=== PATIENT | male | born 1965 | race Caucasian/White ===

== ENCOUNTER 2021-10-22 20:36 | Emergency (ER) | payer SELFPAY ==
[2021-10-22 20:39] VITALS: BP 171/102; PULSE 98; RESP 18; TEMP 36.9; O2SAT 95; BMI 64.0
--- NOTE | 2021-10-22 20:58 | HMH.EDSKAF ---
ED Disposition Clinical Impression: Elevated glucose Contact dermatitis Qualifiers: Contact dermatitis type: unspecified Contact dermatitis trigger: unspecified trigger Qualified Code(s): L25.9 - Unspecified contact dermatitis, unspecified cause Disposition: Home, Self-Care Condition on Discharge: Good Instructions: DI for Rash Additional Instructions: use meds and see pcp for follow up Prescriptions: Minocycline HCl [Minocycline HCl 100mg Tab*] 100 mg PO BID #14 tab Transmission Status: Pending to [id number] predniSONE [Prednisone 20mg Tab] 20 mg PO BID #10 tab Transmission Status: Pending to [id number] - Critical Care Critical Care Time: No Attestation: On , the high probability of a clinically significant, sudden or life threatening deterioration of the following system(s) required my full and direct attention, intervention and personal management. The time I documented below is in addition to time spent performing reported procedures but includes the following listed in this critical care notation. Medical Decision Making - Medical Records Medical records reviewed: Yes: I reviewed the patient's medical records. - Umesh Inquiry Pt receiving controlled substance: No Vital Signs: 10/22/21 20:39 Temperature 98.4 F Temperature Source Oral Pulse Rate [Left Radial] 98 H Respiratory Rate 18 Blood Pressure [Right Arm] 171/102 H Blood Pressure Mean [Right Arm] 125 02 Sat by Pulse Oximetry 95 Oxygen Delivery Method Room Air - Lab Data Lab results reviewed: Yes: I reviewed the patient's lab results. Lab Results 10/22/21 20:50: WBC 8.6, RBC 5.04, Hgb 17.1, Hct 51.6, MCV 102.5 H, MCH 34.0 H, MCHC 33.2, RDW 14.6, Plt Count 218, MPV 10.9 H, Neut % (Auto) 51.8, Lymph % (Auto) 27.4, Kimble % (Auto) 8.2, Eos % (Auto) 10.5, Baso % (Auto) 2.0, Neut # (Auto) 4.5, Lymph # (Auto) 2.4, Kimble # (Auto) 0.7, Eos # (Auto) 0.9 H, Baso # (Auto) 0.2, ESR 8 10/22/21 20:50: Sodium 137, Potassium 3.7, Chloride 99, Carbon Dioxide 33 H, Anion Gap 8.7, BUN 24 H, Creatinine 1.10, Estimated Creat Clear 66, Estimated GFR 69, Est GFR ( Amer) 83, Glucose 264 H, Calcium 9.6, Total Bilirubin 0.6, AST 51, ALT 44, Alkaline Phosphatase 78, C-Reactive Protein 3.3, Total Protein 7.7, Albumin 4.4, Globulin 3.3 H, Albumin/Globulin Ratio 1.3 Result diagrams: 10/22/21 20:50 10/22/21 20:50 Orders (Tests/Meds): ED MEDICATIONS Discontinued Medications Generic Name Dose Route Start Last Admin Trade Name Freq PRN Reason Stop Dose Admin Methylprednisolone Sodium Succinate 125 mg 10/22/21 21:00 10/22/21 21:03 Methylprednisolone Sod Succ 125mg Vial IV 10/22/21 21:01 125 mg ONCE ONE Administration - Radiology Data #1 Image(s): Chest Image Reviewed: Yes I have reviewed radiologist's interpretation Preliminary Findings: Abnormal (see report ) Medical Decision Narrative: has rash which clinically and by hx is reactive - discussed diabetes and need to see pcp for follow up Skin/Abscess/FB HPI - General Chief complaint: Allergic Reaction Stated complaint: throat swelling up Time Seen by Provider: 10/22/21 20:58 Mode of Arrival: Ambulatory Source of Information: Patient, Medical Record Limitations: No Limitations Description of Symptoms (Recalled from ER Triage Doc. by RN): PT REPORTS DIFFICULTY SWALLOWING, DIFFICULTY BREATHING AND RASH. PT REPORTS HE TOOK BENEDRYL 4 HOURS AGO AND IT HAS NOT IMPROVED. - History of Present Illness HPI narrative: pt with reported rash to lr wrist then later to rt upper ext and today with itching - spread to neck -no tick bites - no fever - does smoke - has pre-diabetes MD complaint: rash Onset (ago): day(s) Tetanus up to date: unsure Location: neck, RUE Severity: moderate Quality: pruritic Consistency: intermittent Context: none Associated symptoms: denies other symptoms Treatments prior to arrival: Benadryl - Related Data Home Medications
--- NOTE | 2021-10-22 21:04 | XR_ITS ---
PROCEDURE INFORMATION: Exam: XR Chest Exam date and time: 10/22/2021 9:01 PM Age: 56 years old Clinical indication: Cough; Patient HX: PT states rash on neck causing swelling x2 days TECHNIQUE: Imaging protocol: XR of the chest. Views: 2 views. COMPARISON: No relevant prior studies available. FINDINGS: Lungs: Interstitial haziness in both lungs findings concerning for interstitial pneumonia. Granulomatous changes. Pleural spaces: Unremarkable. No pleural effusion. No pneumothorax. Heart/Mediastinum: Unremarkable. No cardiomegaly. Bones/joints: Unremarkable. IMPRESSION: Interstitial haziness in both lungs could indicate mild interstitial pneumonia. Correlate clinically
[2021-10-22 21:19] LABS: Basophils # 0.2 K/mm3 (0-0.2); Eosinophils # 0.9 K/mm3 (0.0-0.4); Eosinophils % 10.5 % (0.1-12.0); Hematocrit 51.6 % (42.0-52.0); Hemoglobin 17.1 g/dL (14.1-18.0); Lymphocytes # 2.4 K/mm3 (0.7-4.5); Lymphocytes % 27.4 % (10-50); Mean Corpuscular HGB Conc 33.2 g/dL (31.8-35.4); Mean Corpuscular Volume 102.5 fl (80-94); Mean Platelet Volume 10.9 fl (7.4-10.4); Monocytes # 0.7 K/mm3 (0.1-1.0); Monocytes % 8.2 % (1.7-9.3); Neutrophils # 4.5 K/mm3 (1.8-7.8); Neutrophils % 51.8 % (37.0-80.0); Platelet Count 218 K/mm3 (142-424); Red Blood Count 5.04 M/mm3 (4.60-6.20); Red Cell Distribution Width 14.6 % (11.5-17.5); White Blood Count 8.6 K/mm3 (4.8-10.8)
[2021-10-22 21:23] LABS: Alanine Aminotransferase 44 U/L (12-78); Albumin Level 4.4 g/dl (3.5-5.0); Albumin/Globulin Ratio 1.3 (1.1-1.8); Alkaline Phosphatase 78 U/L (38-126); Anion Gap 8.7 mEq/L (5-15); Aspartate Amino Transferase 51 U/L (17-59); Bilirubin,Total 0.6 mg/dl (0.2-1.3); Blood Urea Nitrogen 24 mg/dl (9-20); Calcium 9.6 mg/dl (8.4-10.2); Carbon Dioxide 33 mmol/L (22.0-30.0); Chloride 99 mmol/L (98-107); Creatinine Clearance Estimated 66 mL/min (50-200); Estimated Glomerular Filt Rate 69 ml/min (>60); GFR (African American) 83 ML/MIN (>60); Globulin 3.3 g/dL (1.3-3.2); Glucose 264 mg/dl (74-100); Potassium 3.7 mmoL/L (3.5-5.1); Sodium 137 mmol/L (136-145); Total Protein,Serum 7.7 g/dl (6.3-8.2)
[2021-10-22 21:28] LABS: C-Reactive Protein 3.3 mg/L (0-4)
[2021-10-22 21:51] LABS: Erythrocyte Sedimentation Rate 8 mm/hr (0-20)
--- NOTE | 2021-10-22 22:10 | PC.NURSE ---
ER at bedside
[2021-10-22 22:15] VITALS: BP 109/60; PULSE 83; RESP 18; TEMP 36.9; O2SAT 94
[2021-10-22 22:27] LABS: Hemoglobin A1C 7.4 % (4.0-6.0)
== END 2021-10-22 22:17 | disposition home or self-care (01) ==
PROVIDERS: Emergency Provider Emergency Medicine
DX: T78.40XA Allergy, unspecified, initial encounter (principal); R73.03 Prediabetes
CPT/HCPCS: 71046; 80053; 83036; 85025; 85651; 86140; 96374; 99284

== ENCOUNTER 2025-05-14 09:24 | Emergency (ER) | payer SELFPAY ==
[2025-05-14] VITALS (9 sets, daily range): BP systolic 128–166; BP diastolic 81–96; PULSE 54–77; RESP 18–21; TEMP 36.6–36.8; O2SAT 88–99; BMI 28.2
[2025-05-14 09:33] LABS: Bilirubin,Urine Negative (Negative); Color,Urine YELLOW (Yellow); Glucose,Urine (UA) Negative (Negative); Ketones,Urine Negative (Negative); Leukocyte Esterase,Urine Negative (Negative); Microscopic, Urine URINE MICROSCOPIC (MICROSCOPIC); PH,Urine 5.5 (5.0-8.5); Protein,Urine Negative (Negative); Specific Gravity, Urine 1.015 (1.005-1.030); Urobilinogen,Urine 0.2 EU/dl (0.2)
--- NOTE | 2025-05-14 09:36 | ECG_ITS ---
APPROVED REPORT Exam: Resting ECG HR:63 bpm ECG Measurements Heart Rate 63 AXES TN 151 P 20 QRSd 85 QRS 20 QT 402 T 46 QTc 410 Conclusion SINUS RHYTHM NORMAL ECG UNCONFIRMED REPORT Electronically signed by : Dev Fitch, 05/14/2025 15:07:04
--- OUTSIDE RECORDS SUMMARY | 2025-05-14 09:39 | XMS_ITS | Encounter Summary ---
Author Organization [employer] ([place], [place], [place], [place]) Address [address] [place] [address] Care Team Providers Care Director Of Development Name Role Phone Unavailable Primary Care Provider Unavailabl e Encounter Details Date Type Department Care Team (Late st Contact Info) Description 02/07/2021 Transcribed Document [facility] Family Medicine [address] [place] [address] ProviderAntonette MD [address] [place] [address] Social History Tobacco Use Types Packs/Day Years Used Date Smoking Tobacco: Never Assessed Sex and Gender Information Value Date Recorded Sex Assigned at Not on file Legal Sex Male 4:32 PM CDT Gender Identity Not on file Sexual Orientation Not on file documented as of this encounter Miscellaneous Notes * Cerner Conversion Note - Antonette ProviderMD - 02/07/2021 6:48 PM CDT [facility] OR IntraOp Summary Primary Physician: BRAYDEN LOZA JR, JR, MD-ORT Finalized Date/Time: 02/07/21 19:49:40 Pt. Name: KING ALFREDA /Sex: 1965 Male Med Rec #: [id number] Physician: BRAYDEN LOZA JR, JR, MD-ORT Financial #: [id number] Pt. Type: O Room/Bed: Admit/Disch: 02/07/21 11:25:00 - Institution: [facility] IntraOp Case Attendance Entry 1 Entry 2 Entry 3 Case Attendee BRAYDEN LOZA JR, JR, Lisa Fitch RN Freitas, Sarah A, Rn MD-ORT Role Performed Surgeon/Proceduralist, Gallery Or Museum Guide, First Gallery Or Museum Guide, First First Time In 02/07/21 18:28:00 02/07/21 18:28:00 02/07/21 18:28:00 Time Out 02/07/21 19:51:00 02/07/21 18:59:00 02/07/21 19:51:00 Procedure Shoulder Rotator Cuff Shoulder Rotator Cuff Shoulder Rotator Cuff Repair Arthro Repair Arthro Repair Arthro Other Attendee Superficial Wound Closed By: Last Modified By: Christina Perkins Rn Freitas, Sarah A, Christina Vasquez Rn 02/07/21 19:49:36 02/07/21 19:49:36 02/07/21 19:49:36 Entry 4 Entry 5 Entry 6 Case Attendee FARHAN MESSERST OTHER, ATTENDEE #1 ALFREDO PARDO (REF)MD-INT Role Performed Scrub, First Scrub, First SR. PAYROLL PROCESSOR/Nurse Instrumentation Technician Time In 02/07/21 18:28:00 02/07/21 18:28:00 02/07/21 18:28:00 Time Out 02/07/21 19:51:00 02/07/21 19:00:00 02/07/21 19:51:00 Procedure Shoulder Rotator Cuff Shoulder Rotator Cuff Shoulder Rotator Cuff Repair Arthro Repair Arthro Repair Arthro Other Attendee Dotty Wells Superficial Wound Closed By: Last Modified By: Christina Perkins Rn Freitas, Sarah A, Rn Freitas, Sarah A, Rn 02/07/21 19:49:36 02/07/21 19:49:36 02/07/21 19:49:36 Entry 7 Entry 8 Case Attendee OTHER, ATTENDEE #2 OTHER, ATTENDEE #3 Role Performed Vendor Vendor Time In 02/07/21 18:28:00 02/07/21 18:28:00 Time Out 02/07/21 19:51:00 02/07/21 19:51:00 Procedure Shoulder Rotator Cuff Shoulder Rotator Cuff Repair Arthro Repair Arthro Other Attendee marissa Eason Superficial Wound Closed By: Last Modified By: Christina Perkins Rn Freitas, Sarah A, Rn 02/07/21 19:49:36 02/07/21 19:49:36 [facility] IntraOp Case Attendance Audit 02/07/21 19:49:36 Brush Machine Setter: [id number] Modifier: [id number] 1 <+> Time Out 1 <*> Procedure Shoulder Rotator Cuff Repair Arthro 2 <*> Procedure Shoulder Rotator Cuff Repair Arthro 3 <+> Time Out 3 <*> Procedure Shoulder Rotator Cuff Repair Arthro 4 <+> Time Out 4 <*> Procedure Shoulder Rotator Cuff Repair Arthro 5 <*> Procedure Shoulder Rotator Cuff Repair Arthro 6 <+> Time Out 6 <*> Procedure Shoulder Rotator Cuff Repair Arthro 7 <+> Time Out 7 <*> Procedure Shoulder Rotator Cuff Repair Arthro 8 <+> Time Out 8 <*> Procedure Shoulder Rotator Cuff Repair Arthro 02/07/21 19:05:16 Brush Machine Setter: [id number] Modifier: [id number] <+> 1 Time In <+> 1 Procedure 2 <+> Time In 2 <*> Procedure Shoulder Rotator Cuff Repair Arthro 3 <+> Time In 3 <*> Procedure Shoulder Rotator Cuff Repair Arthro 4 <+> Time In 4 <*> Procedure Shoulder Rotator Cuff Repair Arthro 5 <+> Time In 5 <*> Procedure Shoulder Rotator Cuff Repair Arthro 6 <+> Time In 6 <*> Procedure Shoulder Rotator Cuff Repair Arthro 7 <+> Time In 7 <*> Procedure Shoulder Rotator Cuff Repair Arthro 8 <+> Time In 8 <*> Procedure Shoulder Rotator Cuff Repair Arthro [facility] IntraOp Case Times Entry 1 Patient In Room Time 02/07/21 18:28:00 Out Room Time 02/07/21 19:51:00 Anesthesia Start Time 02/07/21 18:28:00 Stop Time 02/07/21 19:51:00 Anesthesia Ready 02/07/21 18:28:00 Surgery / Procedure Times Start Time 02/07/21 18:48:00 Stop Time 02/07/21 19:37:00 Last Modified By: Christina Perkins Rn 02/07/21 19:49:30 [facility] IntraOp Case Times Audit 02/07/21 19:49:30 Brush Machine Setter: [id number] Modifier: [id number] <+> 1 Out Room Time <+> 1 Stop Time <+> 1 Stop Time [facility] IntraOp Communication Entry 1 Communication To Family/Significant other Communication By BRAYDEN LOZA JR, JR, MD-ORT Last Modified By: Christina Perkins Rn 02/07/21 19:04:36 [facility] IntraOp Counts Verification Entry 1 Procedure Shoulder Rotator Cuff Repair Arthro Count Info Count Type Sponge, Sharps Counts Verification Baseline/pre-procedure Sequence Count Results Not Applicable Counts Performed By Count Performed By OTHER, ATTENDEE #1 (Scrub) Count Performed By Lisa Fitch RN (RN) Last Modified By: Christina Perkins Rn 02/07/21 19:04:49 [facility] IntraOp Counts Final Entry 1 Procedure Shoulder Rotator Cuff Repair Arthro Final Count Info Count Type Sponge, Sharps Counts Verification Skin Closure/end of Sequence procedure Count Results Correct, surgeon notified Counts Performed By Count Performed By FARHAN MESSER ST (Scrub) Count Performed By Christina Perkins Rn (RN) Last Modified By: Christina Perkins Rn 02/07/21 19:27:48 [facility] IntraOp Departure from OR Entry 1 Integumentary Assessment Integumentary WDL Assessment WDL Transfer/Handoff Transfer to PACU Phase I Handoff Method Bedside/Face to face Post-op Transport Stretcher/Gurney Via Patient Transport ALFREDO PARDO (REF), Accompanied by Maddie HUNTER Sarah A, Rn Last Modified By: Christina Perkins Rn 02/07/21 19:05:02 [facility] IntraOp Dressing and Packing Entry 1 Type Dressing Location right shoulder Wound Dressing Item Xeroform, 4x4's, ABD dressing pad Tape Type Paper Supplemental Other Applications Other Comments SLING APPLIED Last Modified By: Christina Perkins Rn 02/07/21 19:05:13 [facility] IntraOp Fire Risk Assessment Entry 1 Fire Info Surgical Site or 1- Yes Incision Above the Xyphoid Open O2 Source 0- No (Mask or Cannula) Available Ignition 1- Yes (ESU, Laser, Light Source) Fire Risk 2 Assessment Score Fire Score Fire Risk Yes Assessment Complete Fire Risk Lisa Fitch, press breaker Verified By Fire Risk 02/07/21 18:46:00 Assessment Verified Date/Time Fire Risk Standard Fire Yes Safety Precautions Followed Last Modified By: Christina Perkins Rn 02/07/21 19:08:11 [facility] IntraOp Fire Risk Assessment Audit 02/07/21 19:08:11 Brush Machine Setter: [id number] Modifier: [id number] <+> 1 Fire Risk Assessment Verified Date/Time [facility] IntraOp General Case Promotions Manager 1 Case Information OR OR 05 SJE Case Level 1 Room Verified Yes Wound Class I - Clean Specialty Orthopedic Anesthesia Type General ASA Class 2 Diagnosis Preop Diagnosis right shoulder pain Postop Same As Preop No Postop Diagnosis see md post op note Last Modified By: Christina Perkins Rn 02/07/21 19:05:57 [facility] IntraOp Implant Log Entry 1 Entry 2 Type Implant (Synthetic) Implant (Synthetic) Implant Log Implant Type Hardware Hardware Tissue Implant Type Implant ANCHOR SUT HEALIX PEEK ANCHR HEALX ADV SP PEEK Identification [id number] Description Implant Quantity 1 1 Implant Site right shoulder right shoulder Implant Identification Model Number Implant Identification Serial Number Implant [id number] Identification Lot Number Implant J&J:Ethicon:Mitek Prdt J&J:Ethicon:Mitek Prdt Identification Crusher Assembler Name: Implant [id number] Identification Catalog Number Implant Size Implant Has an Yes Yes Expiration Date Implant Expiration 07/27/23 09/25/23 Date Wasted Radioactive Material Time Implanted Tissue Implant Continue for Tissue Implant Documentation Tissue Identification Number Graft Prep Per Crusher Assembler Instructions: Tissue Preparation Method: Reconstitution Solution: Reconstitution Solution Lot Number Reconstitution Solution Expiration Date: Thawing Solution Thawing Solution Lot Number Thawing Solution Expiration Date Preparation Materials, Other Preparation Materials, Other Lot Number Preparation Materials, Other Expiration Date Tissue Prepared/Processed By Crusher Assembler Paperwork Completed Implant Type Comment Last Modified By: Christina Perkins Rn Freitas, Sarah A, Rn 02/07/21 19:13:26 02/07/21 19:17:46 [facility] IntraOp Implant Log Audit 02/07/21 19:17:46 Brush Machine Setter: [id number] Modifier: [id number] <+> 2 Implant Expiration Date <+> 2 Implant Has an Expiration Date 02/07/21 19:17:45 Brush Machine Setter: [id number] Modifier: [id number] <+> 2 Implant Identification Description <+> 2 Implant Identification Lot Number <+> 2 Implant Identification Crusher Assembler Name: <+> 2 Implant Site <+> 2 Implant Quantity <+> 2 Implant Identification Catalog Number <+> 2 Implant Type <+> 2 Type [facility] IntraOp Intraoperative Assessment Entry 1 Valid History / Yes Physical in Chart Preoperative Yes Checklist Reviewed/Evaluated Allergies Reviewed Yes Patient is Latex No Sensitive Isolation Not applicable Precautions Noted Level of WDL Consciousness (WDL = Alert, Oriented to Person, Place, and Time) Skin Assessment Yes Verified Present Upon IVs Arrival to OR Last Modified By: Christina Perkins Rn 02/07/21 19:12:04 [facility] IntraOp Intraoperative Assessment Audit 02/07/21 19:12:04 Brush Machine Setter: [id number] Modifier: [id number] 1 <-> Handoff Reported to Lisa Ficth RN 1 <-> Handoff Method Bedside/Face to face [facility] IntraOp Intraoperative Equipment Entry 1 Type Equipment Equipment Equipment Sarah Suction System Setting med Intraop Monitoring Electrocardiogram Three lead placement (ECG) Electrode Placement Antiembolic Devices Antiembolic Devices Sequential compression device, knee high Antiembolic Device Bilateral Location Scopes Photo/Video Documentation Photo No Video No Last Modified By: Christina Perkins Rn 02/07/21 19:08:51 [facility] IntraOp Patient Positioning Entry 1 Procedure Shoulder Rotator Cuff Repair Arthro Body Position Lateral, right side up Left Arm Position Secured on padded arm board Right Arm Position Held on field Left Leg Position Uncrossed, parallel Right Leg Position Uncrossed, parallel Feet Uncrossed Yes Pressure Points Yes Checked Positioning Devices Pillows, Safety Strap, Leg(s), Sparks Bag, Roll, Axillary, Pad, Arm, Arm Board Device Position PT. IN LATERAL POSITION WITH OPERATIVE ARM SUSPENDED IN TRACTION WITH WEIGHTS. PILLOWS UNDER HEAD AND BETWEEN LEGS. Positioned By BRAYDEN LOZA JR, JR, MD-ORT, Lisa Fitch RN, ALFREDO PARDO (REF)MOLLYINT, OTHER, ATTENDEE #1 Position Verified Positioning Yes Verified by Anesthesia Positioning Yes Verified by Surgeon Last Modified By: Christina Perkins Rn 02/07/21 19:09:49 [facility] IntraOp Sign In Entry 1 Patient, Site, Yes Procedure Identified Surgical Consent Yes Confirmed Relevant Surgical Yes Documents Available Surgical Site Yes Marked by person performing procedure Anesthesia Machine Yes Check Completed Medication Checks Yes Completed Allergies Yes Airway Difficult No Airway/Aspiration Risk Difficult Yes Airway/Aspiration Intervention Equipment Available Blood Loss Risk No Blood Loss No Intervention Equipment Prepared and Ready Blood Identifiers Not applicable Verified Per Policy Hypothermia Risk Yes Warming Measures Yes Taken Last Modified By: Christina Perkins Rn 02/07/21 19:10:03 [facility] Intra Op Sign Out Entry 1 RN Confirmation Surgical Yes Procedure(s) Identified Instrument, Sponge Yes and Sharps Counts Correct/Documented Equipment Problems N/A Documented Specimen Labeled N/A Correctly Urinary Catheter N/A Documented in IView Masters Patient Yes Recovery Concerns Reviewed with Anesthesia Provider, Surgeon and RN Masters Patient Yes Management Concerns Reviewed with Anesthesia Provider, Surgeon and RN Safety Checklist Yes Elements Complete? RN Sign Out Christina Perkins Rn Signature RN Sign Out 02/07/21 19:49:00 Signature Date/Time Plan of Care Outcome - Fire Risk OUTCOME STATEMENT: Goal met Patient is free from injury related to surgical fire Plan of Care Outcome - Pt Positioning OUTCOME STATEMENT: Goal met Absence of signs and symptoms of positioning injury. Plan of Care Outcome - Skin Prep OUTCOME STATEMENT: Goal met Intraoperative care is consistent with measures to prevent infection Plan of Care Outcome - Xray/Images OUTCOME STATEMENT: N/A Absence of observable signs or symptoms of radiation injury Plan of Care Outcome - Counts OUTCOME STATEMENT: Goal met Absence of signs and symptoms of injury related to extraneous objects Last Modified By: Christina Perkins Rn 02/07/21 19:49:33 [facility] Intra Op Sign Out Audit 02/07/21 19:49:33 Brush Machine Setter: [id number] Modifier: [id number] <+> 1 RN Sign Out Signature Date/Time [facility] IntraOp Skin Prep Entry 1 Procedure Shoulder Rotator Cuff Repair Arthro Prescribed Yes Pre-Surgical Prep Completed Prep Area right SHOULDER AND ARM Intraop Prep Integumentary WDL Assessment WDL Prep Agents Chloraprep Prep by Christina Perkins Rn Hair Removal Methods No hair removal performed Last Modified By: Christina Perkins Rn 02/07/21 19:06:13 [facility] IntraOp Surgical Procedures Entry 1 Procedure Shoulder Rotator Cuff Repair Arthro Additional RIGHT SHOULDER Procedure ARTHROSCOPY WITH Description ROTATOR CUFF REPAIR AND LABRAL DEBRIDEMENT Primary Procedure Yes Primary Surgeon BRAYDEN LOZA JR, JR, MD-ORT Start 02/07/21 18:48:00 Stop 02/07/21 19:37:00 Anesthesia Type General Specialty Orthopedic Wound Class I - Clean Last Modified By: Christina Perkins Rn 02/07/21 19:49:34 [facility] IntraOp Surgical Procedures Audit 02/07/21 19:49:34 Brush Machine Setter: [id number] Modifier: [id number] <+> 1 Stop [facility] IntraOp Temp Regulation Devices Entry 1 Temp Regulation Temperature Forced Air Warming Regulation Device device Temperature Lower body Regulation Site Temperature ALFREDO PARDO (REF), Regulation Device DALE Applied by Last Modified By: Christina Perkins Rn 02/07/21 19:07:56 [facility] IntraOp Time Out Entry 1 Procedure to be Shoulder Rotator Cuff Performed Repair Arthro Time Out Time Out Pause Time 02/07/21 18:46:00 All activity Yes suspended (unless life threatening emergency) Team Verbally Correct patient Confirms Information identity, Correct side and site are marked, Consent form is present and accurate, Agreement on the procedure to be done, Correct patient position, Relevant images/results properly labeled/appropriately displayed, Confirm antibiotics have been administered, Confirm the skin prep has dried, Confirm prosthesis/implant/devic e is present, Performed in location of procedure after prepped/draped Antibiotic Yes Prophylaxis Administered Or In Progress Within the Last 60 Minutes Beta Hafsa N/A Administered Venous Yes Thromboembolism Prophylaxis Required Anticipated Critical Events Surgeon None expected Anesthesia Provider None expected Nursing Assures Sterility of instruments Essential Imaging Yes Labeled and Displayed Last Modified By: Christina Perkins Rn 02/07/21 19:04:27 Case Comments <None> Finalized By: Christina Perkins, Rn Document Signatures Signed By: Christina Perkins Rn 02/07/21 19:49 documented in this encounter Plan of Treatment Not on file documented as of this encounter Visit Diagnoses Not on filedocumented in this encounter
--- OUTSIDE RECORDS SUMMARY | 2025-05-14 09:39 | XMS_ITS | Encounter Summary ---
Author Organization [employer] ([place], [place], [place], [place]) Address [address] [place] [address] Care Team Providers Care News Internship Name Role Phone Unavailable Primary Care Provider Unavailabl e Encounter Details Date Type Department Care Team (Late st Contact Info) Description 02/07/2021 Transcribed Document [facility] [place] Family Medicine [address] [place] [address] ProviderAntonette MD [address] [place] [address] Social History Tobacco Use Types Packs/Day Years Used Date Smoking Tobacco: Never Assessed Sex and Gender Information Value Date Recorded Sex Assigned at Not on file Legal Sex Male 4:32 PM CDT Gender Identity Not on file Sexual Orientation Not on file documented as of this encounter Miscellaneous Notes * Cerner Conversion Note - Antonette ProviderMD - 02/07/2021 1:04 PM CDT PAT Adult Entered On: 02/07/2021 13:12 EDT Performed On: 02/07/2021 13:04 EDT by EZE ZAVALA RN Vital Measurements Temperature Source : Temporal artery scanning Temperature Mode : Fahrenheit Temperature, Fahrenheit : 98.0 Deg F Clinical Temperature, C : 36.7 Deg C Pulse Method : Pulse Oximetry Pulse Source : Radial, Right Peripheral Pulse Rate : 89 bpm Pulse Rhythm : Regular Respiratory Rate : 16 Breaths/Min Blood Pressure Location : Arm, left upper Blood Pressure Source : Non-Invasive BP Device Blood Pressure Position : Side, Left Systolic Blood Pressure : 124 mmHg Diastolic Blood Pressure : 75 mmHg Oxygen Saturation : 92 % (LOW) Oxygen Therapy Mode : Room air EZE ZAVALA RN - 02/07/2021 13:04 EDT Pain Assessment Pain Assessment : Initial assessment Pain Scale Used : 0-10 Scale Pain Location Comment : R SHOULDER EZE ZAVALA RN - 02/07/2021 13:38 EDT Height and Weight, Clinical Dosing Height, Feet : 5 ft(Converted to: 152 cm, 60 Inch) Height, Inches : 6 Inch(Converted to: 0 ft 6 Inch, 15.24 cm) Clinical Height : 167.64 cm Body Surface Area (BSA) : 1.86 m2 Body Mass Index : 27.2 kg/m2 (HI) [place] Body Weight : 63 kg EZE ZAVALA RN - 02/07/2021 13:38 EDT Height Source : Stated Height Entry Format : [place] Weight Source : Standing scale Weight Entry Format : [place] Clinical Dosing Weight : 76.55 kg Weight, Pounds : 168.4 lb EZE ZAVALA RN - 02/07/2021 13:04 EDT Health Histories Smoking Status : 10 or more cigarettes (1/2 pack or more)/day in last 30 days Smokeless Tobacco Status : Never Desires Tobacco Cessation Medication : No Reason for No Tobacco Cessation Medication : Refuses FDA approved medications EZE ZAVALA RN - 02/07/2021 13:38 EDT Social History (As Of: 02/07/2021 13:43:16 EDT) Tobacco: Use in Last 12 Months: Cigarettes. Smoking Status Current every day smoker. Packs/Tins Daily: 1. (Last Updated: 08/09/2014 19:08:18 EST by LUKAS COLBY RN) Alcohol: Use in Last 12 Months: Yes. Days/Week: 6. # Drinks/Day: 2. Comments: 12/13/2013 10:29 - ARAVIND AHUJA MD-EMR: Beer (Last Updated: 12/13/2013 10:30:00 EDT by ARAVIND AHUJA MD-EMR) Substance Abuse: Drug Use Hx: No. Use in Last 12 Months: No. (Last Updated: 12/21/2013 09:39:40 EDT by AYANA RAGSDALE, LUCIA) Nutrition/Health: Caffeine intake amount: 3. (Last Updated: 12/21/2013 09:39:22 EDT by AYANA RAGSDALE, LUCIA) Employment/School: Employed, Work/School description: senior pharmacy technician. (Last Updated: 12/13/2013 10:30:12 EDT by LEIGHA, ARAVIND MATT, MD-EMR) Infectious Disease History Has the patient ever been tested for COVID-19? : Yes, Patient stated results Negative Where was the COVID-19 Testing completed? : [facility] Where are the test results? : Paper Copy on chart Date of COVID-19 test known? : Yes Date of COVID-19 Test : 02/05/2021 EDT Does patient have symptoms of COVID-19? : No COVID19 Screening : No Experiencing Infectious Disease Symptoms : No symptoms Physical contact outside [place] in the last 30 days : No Infectious Disease History : None Exposure to Contagious Illness : No Tuberculosis Symptoms : None EZE ZAVALA RN - 02/07/2021 13:38 EDT COVID19 PreProcedure Screening Is this an Emergent or Add on Procedure? : No Date PreProcedure COVID-19 test known? : Yes Date of PreProcedure COVID-19 : 02/05/2021 EDT Has patient been isolated since the test : Yes Exposed to COVID19 symptoms since test? : No EZE ZAVALA RN - 02/07/2021 13:04 EDT Anesthesia/Transfusion History Family History of Anesthesia Reaction : No prior transfusion(s) Transfusion History : Prior anesthesia without reaction Family History of Anesthesia Reaction : None EZE ZAVALA RN - 02/07/2021 13:04 EDT Functional Assessment Functional ADL Evaluation Index EBN Bathing : Independent (2) Dressing : Independent (2) Toileting : Independent (2) Transferring Bed or Chair : Independent (2) Continence : Independent (2) Feeding : Independent (2) EZE ZAVALA RN - 02/07/2021 13:04 EDT ADL Index Score : 12 EZE ZAVALA RN - 02/07/2021 13:04 EDT Advance Directive Patient has Advance Directive *Q : No, patient refuses Advance Directive information EZE ZAVALA RN - 02/07/2021 13:04 EDT Spiritual/Cultural Needs Any Spiritual/Cultural Needs or Requests : No EZE ZAVALA RN - 02/07/2021 13:38 EDT [place] Suicide Severity Rating Scale (C-SSRS) CSSRS Past Month Wish to be : No CSSRS Past Month Suicidal Thoughts : No CSSRS Lifetime Suicide Behavior : No Suicide Severity Rating Score : 0 Suicide Severity Rating : No Additional Care Required at this time Thoughts of Harming/Killing Others : No EZE ZAVALA RN - 02/07/2021 13:04 EDT Psychosocial History Currently in Unsafe Situation : No Do You Have a Support System? : Yes EZE ZAVALA RN - 02/07/2021 13:04 EDT Teaching/Learning Assessment Barriers To Learning : None evident Individuals Taught : Patient Readiness to Learn : Cooperative Baseline Knowledge of Topic : Good Readiness to Learn : Explanation, Printed materials Learning Style Preferences Patient : Printed materials, Verbal explanation Learning Style Preferences Family : Printed materials, Verbal explanation EZE ZAVALA RN - 02/07/2021 13:38 EDT Education Topics, Periop Preadmission Perioperative Education Grid Arrival Time/Place : Verbalizes understanding Falls : Verbalizes understanding IV's : Verbalizes understanding NPO Status/Directions : Verbalizes understanding Pain Management : Verbalizes understanding Preprocedure Preparations : Verbalizes understanding Preprocedure Tests/Labs : Verbalizes understanding Responsible Adult : Verbalizes understanding Take/Hold Medications Pre-Procedure : Verbalizes understanding EZE ZAVALA RN - 02/07/2021 13:38 EDT General Info Preferred Name : Luis Arrived From : Home Mode of Arrival on Unit : Ambulatory Patient Arrival Date/Time : 02/07/2021 11:35 EDT Legal Guardian : Unaccompanied Support Person/Patient [place] Pen Cartridge Tester : Yes EZE ZAVALA RN - 02/07/2021 13:04 EDT EZE ZAVALA RN - 02/07/2021 13:38 EDT Want Family/Rep/Phys Notified of Admit : No Emergency Contact #1 : . Emergency Contact #1 Phone Number : . Emergency Contact #1 Relationship : . Emergency Contact #2 : . Emergency Contact #2 Phone Number : . Emergency Contact #2 Relationship : . Information Obtained From : Patient Primary Language : Romanian Preferred Communication Mode : Verbal Communication Barrier : None Bait Man Needed : No EEZ ZAVALA RN - 02/07/2021 13:04 EDT Lai Scale Lai Sensory Perception : No impairment Lai Moisture : Rarely moist Lai Activity : Walks frequently Lai Mobility : Slightly limited Lai Nutrition : Excellent Lai Friction and Shear : No apparent problem Lai Score : 22 EZE ZAVALA RN - 02/07/2021 13:04 EDT Sleep Apnea Risk Assmt Hx of Obstructive Sleep Apnea Diagnosis : No Snore Loudly : No Tired, Fatigued, or Sleepy During Day : No Observed Stopping Breathing During Sleep : No Have/Are Being Treated for Hypertension : No BMI Greater Than 35 kg/m2 : No EZE ZAVALA RN - 02/07/2021 13:38 EDT Age over 50 Years Old : Yes Gender Male : Yes EZE ZAVALA RN - 02/07/2021 13:04 EDT Pain Scale Intensity : 6 EZE ZAVALA RN - 02/07/2021 13:38 EDT Image 4 - Images currently included in the form version of this document have not been included in the text rendition version of the form. documented in this encounter Plan of Treatment Not on file documented as of this encounter Visit Diagnoses Not on filedocumented in this encounter
--- OUTSIDE RECORDS SUMMARY | 2025-05-14 09:39 | XMS_ITS | Encounter Summary ---
Author Organization [employer] ([place], [place], [place], [place]) Address [address] [place] [address] Care Team Providers Care Hydraulic Mechanic Name Role Phone Unavailable Primary Care Provider Unavailabl e Encounter Details Date Type Department Care Team (Late st Contact Info) Description 02/05/2019 Transcribed Document [facility] [place] [address] [place] [address] ProviderAntonette MD [address] [place] [address] Social History Tobacco Use Types Packs/Day Years Used Date Smoking Tobacco: Never Assessed Sex and Gender Information Value Date Recorded Sex Assigned at Not on file Legal Sex Male 4:32 PM CDT Gender Identity Not on file Sexual Orientation Not on file documented as of this encounter Miscellaneous Notes * Cerner Conversion Note - Antonette ProviderMD - 02/05/2019 11:00 AM CDT ED Assessment Entered On: 02/05/2019 11:30 EDT Performed On: 02/05/2019 11:08 EDT by MARY AQUINO ED Quick Look Assessment Level of Consciousness : Alert, Awake Affect/Behavior : Appropriate, Calm, Cooperative Orientation : Oriented x 4 Skin Temperature : Warm Skin Description : Dry MARY AQUINO - 02/05/2019 11:28 EDT ED General-Functional Assess Information Obtained From : Patient Preferred Communication Mode : Verbal Communication Barrier : None Primary Language : Georgian Any Spiritual/Cultural Needs or Requests : No Currently in Unsafe Situation : No MARY AQUINO - 02/05/2019 11:28 EDT Social Habits Smoking Status : 10 or more cigarettes (1/2 pack or more)/day in last 30 days Smokeless Tobacco Status : Never Desires Tobacco Cessation Medication : No Reason for No Tobacco Cessation Medication : ED/procedural patient only Desires Tobacco Cessation Calc : 1 MARY AQUINO - 02/05/2019 11:28 EDT Social History (As Of: 02/05/2019 11:30:35 EDT) Tobacco: Use in Last 12 Months: Cigarettes. Smoking Status Current every day smoker. Packs/Tins Daily: 1. (Last Updated: 08/09/2014 19:08:18 EST by LUKAS COLBY, RN) Alcohol: Use in Last 12 Months: Yes. Days/Week: 6. # Drinks/Day: 2. Comments: 12/13/2013 10:29 - ARAVIND AHUJA MD-EMR: Beer (Last Updated: 12/13/2013 10:30:00 EDT by ARAVIND AHUJA MD-EMR) Substance Abuse: Drug Use Hx: No. Use in Last 12 Months: No. (Last Updated: 12/21/2013 09:39:40 EDT by AYANA RAGSDALE, RN) Nutrition/Health: Caffeine intake amount: 3. (Last Updated: 12/21/2013 09:39:22 EDT by AYANA RAGSDALE, RN) Employment/School: Employed, Work/School description: radiocommunications technician. (Last Updated: 12/13/2013 10:30:12 EDT by ARAVIND AHUJA MD-EMR) Respiratory Breath Sounds Auscultated : Anterior, Laterally Respiratory Assessment WDL : WDL with patient specific variances (Comment: hx of COPD, +smoker. [MARY AQUINO Sudhir - 02/05/2019 11:28 EDT] ) Cough : None MILES, MARY Peguero - 02/05/2019 11:28 EDT Breath Sounds Assessment Grid All Lobes Breath Sounds : Clear MARY AQUINO Sudhir - 02/05/2019 11:28 EDT Musculoskeletal Musculoskeletal Assessment WDL : WDL with exceptions Musculoskeletal Assessment Comment : c/o R knee pain/swelling. hx of knee replacement in past. ambulatory with cane. ANTONINA AQUINOROSA Peguero - 02/05/2019 11:28 EDT Neurologic ASMT, ED Neurologic Assessment WDL : WDL [place] Coma Scale Link : Open GCS MARY AQUINO Sudhir Vigil 02/05/2019 11:28 EDT Nieves Coma [place] Best Motor Response : Obey commands Nieves Best Verbal Response : Oriented Nieves Eye Opening Response : Spontaneous [place] Coma Score : 15 MARY AQUINO Sudhir - 02/05/2019 11:28 EDT Electronically signed by Branden, Marcelino Conversion Recorder Helper [employer] Cerner at 11/12/2022 11:28 AM CDT documented in this encounter Plan of Treatment Not on file documented as of this encounter Visit Diagnoses Not on filedocumented in this encounter
--- OUTSIDE RECORDS SUMMARY | 2025-05-14 09:39 | XMS_ITS | Encounter Summary ---
Author Organization [employer] ([place], [place], [place], [place]) Address [address] [place] [address] Care Team Providers Care [employer] Name Role Phone Unavailable Primary Care Provider Unavailabl e Encounter Details Date Type Department Care Team (Late st Contact Info) Description 02/05/2019 Transcribed Document [facility] [place] Family Medicine [address] [place] [address] ProviderAntonette MD [address] [place] [address] Social History Tobacco Use Types Packs/Day Years Used Date Smoking Tobacco: Never Assessed Sex and Gender Information Value Date Recorded Sex Assigned at Not on file Legal Sex Male 4:32 PM CDT Gender Identity Not on file Sexual Orientation Not on file documented as of this encounter Miscellaneous Notes * Cerner Conversion Note - Antonette Urbano MD - 02/05/2019 12:21 PM CDT [facility] [place] [address] BELEM GARG :1965 Visit Time:02/05/2019 Your Visit Summary Your Care Team Admitting Physician - ZARINA SANFORD MD-YAHIR Attending Physician - ZARINA SANFORD MD-YAHIR Primary Care Physician - ALFREDO HOPPER MD-[facility] Referring Physician - ZARINA SANFORD MD-YAHIR Your Diagnosis Gout of knee Knee pain-swelling Medical Information You may obtain a copy of your Emergency Department visit from Medical Records by calling the hospital phone number listed above and asking to be directed to the Medical Records Department. If you had special tests, such as EKG???s or X-rays, the interpretation of your tests given to you by the Emergency Department Physician is a preliminary report. Some fractures and illnesses fail to show up on preliminary tests. These will be reviewed again and we will call you if there are any new suggestions. If your symptoms continue notify your physician. After you leave, you should follow the instructions provided. What to do next Follow-Up Appointments Follow Up with Follow up with primary care provider When Within 2 to 4 days Comments Take medications as directed, follow with PCP, return to emergency Department with new or worsening symptoms Follow Up with Patient Resource Center When Within 2 to 3 days Comments Please contact the Patient Resource Center at if you need assistance finding a Primary Care Provider or Specialist in the future. Follow Up with ALFREDO HOPPER When Within 2 to 3 days Where: [address] [place] [address] Business (1) Allergies No Known Medication Allergies Immunizations This Visit No Immunizations Found Medications What How Much When Instructions Next Dose New predniSONE (predniSONE 50 mg oral tablet) 1 Tablet(s) Oral Every Day Duration: 5 Day(s) Pickup at [facility]/pharmacy #[id number] Pharmacy Information [facility]/pharmacy #[id number]: [address] [place], [place] [id number] [phone] The home medications listed are only as accurate as the information you provided. Please continue taking all of your medications prescribed by your Primary Care Provider unless specifically told to change or discontinue the medication. Please direct any questions regarding your home medications to your Primary Care Provider. Take your medications faithfully. Do NOT skip medication. Do NOT stop taking medications without the direction of a physician. Carry a list of your medications with you at all times, and take this medication list with you to your first follow up visit. Report any side effects. Avoid herbal remedies unless discussed with your physician. As part of your treatment plan, your physician may have prescribed a limited course of a controlled substance. This medication may be given to help people with moderate or severe pain or for other medical conditions, but there are risks involved with treatment. Common side effects may include nausea, constipation, drowsiness, sweating, itching, dry mouth, and rash. More serious side effects may include cognitive and motor impairment, like problems with thinking, concentrating, alertness, and movement (e.g. slowed reflexes), and driving and operating heavy machinery can be dangerous. It is important for you to talk to your physician if you have these side effects or questions. These controlled substances can produce physical dependence and be habit-forming if taken for an extended period of time, which means that the body has gotten used to them and may experience withdrawal symptoms if they are abruptly stopped. Withdrawal symptoms can include runny nose, sweating, goose bumps, diarrhea, abdominal cramping, rapid heartbeat, difficulty sleeping, and nervousness. Please dispose of unused and medications per pharmacy guidance. Test Results Laboratory or Other Results This Visit (last charted value for your 02/05/2019 visit) No Laboratory or Other Results This Visit Education Materials Gout Gout is painful swelling that can occur in some of your joints. Gout is a type of arthritis. This condition is caused by having too much uric acid in your body. Uric acid is a chemical that forms when your body breaks down substances called purines. Purines are important for building body proteins. When your body has too much uric acid, sharp crystals can form and build up inside your joints. This causes pain and swelling. Gout attacks can happen quickly and be very painful (acute gout). Over time, the attacks can affect more joints and become more frequent (chronic gout). Gout can also cause uric acid to build up under your skin and inside your kidneys. What are the causes? This condition is caused by too much uric acid in your blood. This can occur because: ??? Your kidneys do not remove enough uric acid from your blood. This is the most common cause. ??? Your body makes too much uric acid. This can occur with some cancers and cancer treatments. It can also occur if your body is breaking down too many red blood cells (hemolytic anemia). ??? You eat too many foods that are high in purines. These foods include organ meats and some seafood. Alcohol, especially beer, is also high in purines. A gout attack may be triggered by trauma or stress. What increases the risk? This condition is more likely to develop in people who: ??? Have a family history of gout. ??? Are male and middle-aged. ??? Are female and have gone through menopause. ??? Are obese. ??? Frequently drink alcohol, especially beer. ??? Are dehydrated. ??? Lose weight too quickly. ??? Have an organ transplant. ??? Have lead poisoning. ??? Take certain medicines, including aspirin, cyclosporine, diuretics, levodopa, and niacin. ??? Have kidney disease or psoriasis. What are the signs or symptoms? An attack of acute gout happens quickly. It usually occurs in just one joint. The most common place is the big toe. Attacks often start at night. Other joints that may be affected include joints of the feet, ankle, knee, fingers, wrist, or elbow. Symptoms may include: ??? Severe pain. ??? Warmth. ??? Swelling. ??? Stiffness. ??? Tenderness. The affected joint may be very painful to touch. ??? Shiny, red, or purple skin. ??? Chills and fever. Chronic gout may cause symptoms more frequently. More joints may be involved. You may also have white or yellow lumps (tophi) on your hands or feet or in other areas near your joints. How is this diagnosed? This condition is diagnosed based on your symptoms, medical history, and physical exam. You may have tests, such as: ??? Blood tests to measure uric acid levels. ??? Removal of joint fluid with a needle (aspiration) to look for uric acid crystals. ??? X-rays to look for joint damage. How is this treated? Treatment for this condition has two phases: treating an acute attack and preventing future attacks. Acute gout treatment may include medicines to reduce pain and swelling, including: ??? NSAIDs. ??? Steroids. These are strong anti-inflammatory medicines that can be taken by mouth (orally) or injected into a joint. ??? Colchicine. This medicine relieves pain and swelling when it is taken soon after an attack. It can be given orally or through an IV tube. Preventive treatment may include: ??? Daily use of smaller doses of NSAIDs or colchicine. ??? Use of a medicine that reduces uric acid levels in your blood. ??? Changes to your diet. You may need to see a specialist about healthy eating (dietitian). Follow these instructions at home: During a Gout Attack ??? If directed, apply ice to the affected area: ? Put ice in a plastic bag. ? Place a towel between your skin and the bag. ? Leave the ice on for 20 minutes, 2???3 times a day. ??? Rest the joint as much as possible. If the affected joint is in your leg, you may be given crutches to use. ??? Raise (elevate) the affected joint above the level of your heart as often as possible. ??? Drink enough fluids to keep your urine pale yellow. ??? Take imtj-tvr-eztumyt and prescription medicines only as told by your health care provider. ??? Do not drive or operate heavy machinery while taking prescription pain medicine. ??? Follow instructions from your health care provider about eating or drinking restrictions. ??? Return to your normal activities as told by your health care provider. Ask your health care provider what activities are safe for you. Avoiding Future Gout Attacks ??? Follow a low-purine diet as told by your dietitian or health care provider. Avoid foods and drinks that are high in purines, including liver, kidney, anchovies, asparagus, davis, mushrooms, mussels, and beer. ??? Limit alcohol intake to no more than 1 drink a day for non women and 2 drinks a day for men. One drink equals 12 oz of beer, 5 oz of wine, or 1?? oz of hard liquor. ??? Maintain a healthy weight or lose weight if you are overweight. If you want to lose weight, talk with your health care provider. It is important that you do not lose weight too quickly. ??? Start or maintain an exercise program as told by your health care provider. ??? Drink enough fluids to keep your urine pale yellow. ??? Take srdx-bvl-xdpqprg and prescription medicines only as told by your health care provider. ??? Keep all follow-up visits as told by your health care provider. This is important. Contact a health care provider if: ??? You have another gout attack. ??? You continue to have symptoms of a gout attack after10 days of treatment. ??? You have side effects from your medicines. ??? You have chills or a fever. ??? You have burning pain when you urinate. ??? You have pain in your lower back or belly. Get help right away if: ??? You have severe or uncontrolled pain. ??? You cannot urinate. This information is not intended to replace advice given to you by your health care provider. Make sure you discuss any questions you have with your health care provider. Document Released: 07/11/2001 Document Revised: 04/07/2018 Document Reviewed: 04/25/2016 [employer] Patient Education ?? 2019 [employer] Emergency Awareness and Preventative Care STROKE is an EMERGENCY Every Minute Counts Act FAST and Check for these signs: FACE Does the face look uneven? ARM Does one arm drift down? SPEECH Does their speech sound strange? TIME Call at any sign of stroke Stroke Risk Factors Atrial Fibrillation (irregular heartbeat) Diabetes Family history of stroke Heart Disease Heavy alcohol use High Blood Pressure High Cholesterol Physical inactivity and obesity Smoking Cigarette Smoking The facts are clear, cigarette smoking will shorten your life. Smoking can cause many illnesses along the way. As a healthcare provider, we recommend that you stop smoking. Assistance with quitting is available by contacting 1-005-UNZYNOW. This is a free resource providing counseling, support, and referral. Or you may contact your personal physician. Food on the Table Suicide Prevention Lifeline: The National Suicide Prevention Lifeline is a national network of local crisis centers that provides free and confidential emotional support to people in suicidal crisis or emotional distress 24 hours a day, 7 days a week. Don't Wait! Stop a Heart Attack Before it Starts What is a heart attack? A heart attack is damage or to a part of the heart from severely decreased or lack of blood flow to the heart. Over time, arteries can become narrow from the buildup of fat and cholesterol, which is called plaque. The plaque can rupture causing a blood clot to form. When the blood clot forms, the artery can become severely narrowed or completely blocked, causing a heart attack. Heart attack is the leading cause of in the [place]. 85% of muscle damage occurs within the first 2 hours. Delay in the recognition of heart attack symptoms increases the chances of . Know the early symptoms of a heart attack: Nausea Feeling of fullness in chest Jaw Pain Pain that travels down one or both arms Fatigue/being tired Anxiety Back Pain Chest pressure, squeezing, or discomfort Shortness of breath Sweating, or a cold sweat Feeling of impending doom There are unusual signs of a heart attack, too! Women, the elderly, and diabetics may present with atypical symptoms: Fainting/dizziness Weakness Confusion Risk Factors for a Heart Attack Some heart disease risk factors, such as age and family history, cannot be changed. Others, like smoking and lack of exercise, can be changed. Smoking High Cholesterol High Blood Pressure Family History Obesity Age Gender (Males are at higher risk) Lack of Exercise Diabetes Diet Stress Excessive Alcohol Intake If you or someone you know is experiencing the signs and symptoms of a heart attack, DON???T DELAY. Call immediately and seek help. If someone collapses, perform CPR! Do not attempt to drive if you are having symptoms of heart attack. Hands-Only CPR Why Hands-Only CPR? Hands-Only CPR has been shown to be as effective as conventional CPR for cardiac arrests that occur outside of a hospital. Survival depends on immediately receiving CPR from someone nearby. How do you perform Hands-Only CPR? There are two easy steps: Call if you see a teen or adult collapse Push hard and fast in the center of the chest at a beat of 100 beats per minute. Save a life! 4 WAYS TO GET AHEAD OF SEPSIS SEPSIS is a MEDICAL EMERGENCY. Time matters! Infections put you and your family at risk for a life-threatening condition called sepsis. Sepsis is the body's extreme response to an infection. It is life-threatening, and without timely treatment, sepsis can rapidly lead to tissue damage, organ failure, and . Sepsis happens when an infection you already have-in your skin, lungs, urinary tract or somewhere else-triggers a chain reaction throughout your body. 1 PREVENT INFECTIONS Take good care of chronic conditions. Talk to your doctor about getting the recommended vaccines. 2 PRACTICE GOOD HYGIENE Wash your hands frequently. Keep cuts or open sores clean and covered until they are healed. 3 KNOW THE SYMPTOMS Confusion or disorientation Shortness of breath High heart rate Fever, shivering, or feeling very cold Extreme pain or discomfort Clammy or sweaty skin 4 ACT FAST Get medical care IMMEDIATELY if you suspect sepsis or if you have an infection that is not getting better or is getting worse. To learn more about sepsis and how to prevent infections, visit www.cdc.gov/sepsis. The examination and treatment you have received in the Emergency Department has been done to provide an appropriate evaluation and stabilizing treatment on an emergency basis only. Given the limited resources, it is not meant to be a substitute for complete medical care. The follow-up doctor you named will receive a copy of your records and all test reports. IT IS IMPORTANT THAT YOU SCHEDULE A FOLLOW-UP APPOINTMENT AND ARE RE-EVALUATED. You should report any new complaints, symptoms, or remaining problems at that time. IT IS IMPOSSIBLE FOR THE EMERGENCY DEPARTMENT TO RECOGNIZE AND TREAT ALL ELEMENTS OF INJURY OR ILLNESS IN A SINGLE VISIT. If you have been referred to a specialist physician, it means that we believe you may have a condition that requires the expertise of a specialist. These physicians work in partnership with the hospital and have agreed to see referred patients in their office for further evaluation. KEEP IN MIND THAT THE SPECIALIST HAS HIS/HER OWN OFFICE POLICIES WHICH MAY REQUIRE PROPER INSURANCE OR PAYMENT UP FRONT BEFORE THE SPECIALIST WILL SEE YOU. It is your responsibility to call the specialist physician to make an appointment. We do not have the ability to refer patients to specialists/physicians that work with specific insurance companies. Please be advised that all financial charges or billing practices are determined by that practice, not the hospital. If your insurance company requires that you see a specialist from their approved list, it is your responsibility to contact your insurance company to make those arrangements. It is also your responsibility to follow any other requirements of your insurance company necessary to obtain coverage for claims submitted. We will bill your insurance; however, you are responsible today for any co-pay amounts. You will receive a separate bill for any services you may have received including: emergency, radiology, or pathology physicians. Patient Name:BELEM GARG I have received this information and was given the opportunity to ask questions. Patient/Retail Product Advisor Name: Patient/Retail Product Advisor Signature: Relationship to Patient: Clinician/Hospital Retail Product Advisor Signature: Please Provide a Telephone Number Where You Can Be Reached: Is it Permissible To Leave a Message? Date: documented in this encounter Plan of Treatment Not on file documented as of this encounter Visit Diagnoses Not on filedocumented in this encounter
--- OUTSIDE RECORDS SUMMARY | 2025-05-14 09:39 | XMS_ITS | Encounter Summary ---
Author Organization [email or web address] ([place], [place], [place], [place]) Address [address] [place] [address] Care Team Providers Care Financial Services Auditor Name Role Phone Unavailable Primary Care Provider Unavailabl e Encounter Details Date Type Department Care Team (Late st Contact Info) Description 02/05/2019 Transcribed Document [facility] [place] [facility] [place] [address] ProviderAntonette MD [address] [place] [address] Social History Tobacco Use Types Packs/Day Years Used Date Smoking Tobacco: Never Assessed Sex and Gender Information Value Date Recorded Sex Assigned at Not on file Legal Sex Male 4:32 PM CDT Gender Identity Not on file Sexual Orientation Not on file documented as of this encounter Miscellaneous Notes * Cerner Conversion Note - Antonette ProviderMD - 02/05/2019 11:18 AM CDT Patient: BELEM ROBLES Age: 54 years Sex: Male : 1965 Associated Diagnoses: Gout of knee Author: Beveryl Mckeon PA Basic Information Additional information: Chief Complaint from Nursing Triage Note : Chief Complaint 02/05/2019 11:11 EDT Chief Complaint from paige w.c/o R.knee pain/swelling since Fri.; pt reports it as a 'gout attack'; current w/pain mgmt, who referred him to a yarn weight and strength tester that he has been unable to obtain an appt. with; Hx gout, GERD, esophageal ulcer, +smoker . History of Present Illness The patient presents with knee pain, knee swelling and Patient is 54-year-old male with history of gout and GERD he presents to the emergency department with complaint of right knee pain and swelling that started on Friday. Patient reports that he is having a gout attack where his knee feels up with fluid, patient reports he has a pain management yesterday he advise for him to get in with his yarn weight and strength tester to have his knee drained however patient could not be seen until the end of the month, patient reports that his pain management doctor advised him that if his medicine was not helping to come to the emergency department, patient reports that he took a Palm this morning and got no relief. Patient reports he had a gout flare 2 weeks ago and started taking his indomethacin with his allopurinol, he reports he is still taking the indomethacin and allopurinol together. Patient reports last time that he had to have fluid drained off his knee was approximately one year ago and this was done of his yarn weight and strength tester office. Patient denies fever chills headache dizziness nausea vomiting diarrhea numbness tingling decreased range of motion.. The onset was 5 days ago. The course/duration of symptoms is worsening. Type of injury: none. Location: Right anterior knee. The character of symptoms is pain and swelling. The degree at present is severe. There are exacerbating factors including movement and weight bearing. The relieving factor is none. Risk factors consist of none. Prior episodes: occasional. Therapy today: prescription medications. Associated symptoms: edema. Review of Systems Additional review of systems information: All other systems reviewed and otherwise negative. Health Status Allergies: Allergic Reactions (Selected) No Known Medication Allergies. Medications: (Selected) Prescriptions Prescribed Florastor 250 mg oral capsule: 1 Cap, Oral, BID, PRN: for loose stool, 20 Tab, 0 Refill(s) Documented Medications Documented Tylenol 325 mg oral tablet: 2 Tab, Oral, Q4H, PRN: Pain (Mild 1-3), 0 Refill(s) Ultram 50 mg oral tablet: 1 Tab, Oral, TID, PRN: for pain allopurinol 300 mg oral tablet: 1 Tab, Oral, Daily, 0 Refill(s) hydroCHLOROthiazide-lisinopril 12.5 mg-10 mg oral tablet: 1 Tab, Oral, Daily, 0 Refill(s) indomethacin 25 mg oral capsule: 1 Cap, Oral, BID, home medication, PRN: Pain, 0 Refill(s). Immunizations: Per nurse's notes. Past Medical/ Family/ Social History Medical history Reviewed as documented in chart. Surgical history: Colostomy and takedown for diverticulitis. Comments: 12/13/2013 10:29 - ARAVIND AHUJA MD Dr. Johnson ~ 1999 Arthroscopic surgical procedure on knee ([id number]). bowel resection., Reviewed as documented in chart. Family history: No family history items have been selected or recorded., Reviewed as documented in chart. 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 Problem list: Active Problems (4) Diverticula of colon GERD (gastroesophageal reflux disease) Gout Ulcer of esophagus with bleeding , per nurse's notes. Physical Examination Vital Signs Vital Signs/Vital Measures 02/05/2019 11:11 EDT Systolic Blood Pressure 137 mmHg Diastolic Blood Pressure 68 mmHg Temperature Source Oral Temperature Mode Fahrenheit Temperature, Fahrenheit 97.9 Deg F Clinical Temperature, C 36.6 Deg C Peripheral Pulse Rate 100 bpm Respiratory Rate 18 Breaths/Min Oxygen Saturation 93 % LOW Oxygen Therapy Mode Room air . Measurements 02/05/2019 11:11 EDT Height Source Stated Height Entry Format Murray Height/Length, DJIBOUTIAN (ft) 5 ft Height/Length DJIBOUTIAN 6 Inch CLINICALHEIGHT 167.64 cm Ponce Body Weight 62.88 kg Weight Source, ED Critical estimated dosing weight Weight Entry Format Murray Weight Mongolian lb 175 lb CLINICALWEIGHT 79.55 kg Body Surface Area (BSA) 1.89 m2 Body Mass Index 28.3 kg/m2 HI . Oxygen Saturation 02/05/2019 11:11 EDT Oxygen Saturation 93 % LOW . General: Alert, mild distress. Skin: Warm, dry, pink, intact, mild erythema with moderate swelling to R anterior superior knee. Head: Normocephalic, atraumatic. Neck: Supple, trachea midline. Eye: Normal conjunctiva. Ears, nose, mouth and throat: Oral mucosa moist. Cardiovascular: Regular rate and rhythm. Respiratory: Lungs are clear to auscultation, respirations are non-labored. Musculoskeletal: Normal ROM, normal strength, no deformity, Lower extremity: Right, anterior, knee, tenderness, swelling, erythema. Neurological: Alert and oriented to person, place, time, and situation, No focal neurological deficit observed, normal speech observed, normal coordination observed. Medical Decision Making Differential Diagnosis: Cellulitis, degenerative joint disease, gout, internal knee injury. Documents reviewed: Emergency department nurses' notes, emergency department records, prior records. Orders Include Previous Orders (Selected) Inpatient Orders Ordered Discharge: Completed ED Adult Fall Risk Assessment: ED Adult Triage: ED Clinical Reconciliation: ED production support developer: Prescriptions Prescribed predniSONE 50 mg oral tablet: 1 Tab, Oral, Daily, for 5 Day(s), 5 Tab, 0 Refill(s) . Procedure Procedure note Time: 02/05/2019 13:49:00 . Procedure: R knee arthrocentesis. Confirmed: Patient, procedure, side, and site correct. Indication: R knee effusion - recurrent from gout. Therapeutic arthrocentesis for pain control. Consent: Patient, Has given verbal consent. Location: R lateral knee. Pre procedure exam: see physical exam. Procedural sedation: None. Preparation: prepped with chlorhexidine scrub. Technique: R lateral knee infiltrated with lidocaine with epi - approx 2cc. Placed 18g needle attached to 60cc syringe and advanced to R lateral midknee and withdrew approx 40cc of yellow synovial fluid. Post procedure exam: n/v intact, effusion smaller, pain improved. Patient tolerated: Well. Complications: None. Performed by: Self. Total time: 15 minutes. Impression and Plan Diagnosis Gout of knee - Discharge, Medical Plan Condition: Improved, Stable. Disposition: Discharged Admit/Transfer/Discharge: Discharge (Order): Start: 02/05/2019 12:20 EDT, Discharge to: Home. Prescriptions: Prescription [facility]: predniSONE 50 mg oral tablet (Prescribe): 1 Tab, Oral, Daily, for 5 Day(s), 5 Tab, 0 Refill(s). Patient was given the following educational materials: Gout. Follow up with: Patient Resource Center Within 2 to 3 days Please contact the Patient Resource Center at if you need assistance finding a Primary Care Provider or Specialist in the future. ; ALFREDO HOPPER Within 2 to 3 days; Follow up with primary care provider Within 2 to 4 days Take medications as directed, follow with PCP, return to emergency Department with new or worsening symptoms. Counseled: Patient, Regarding diagnosis, Regarding diagnostic results, Regarding treatment plan, Regarding prescription, Patient indicated understanding of instructions. documented in this encounter Plan of Treatment Not on file documented as of this encounter Visit Diagnoses Not on filedocumented in this encounter
--- OUTSIDE RECORDS SUMMARY | 2025-05-14 09:39 | XMS_ITS | Encounter Summary ---
Author Organization [employer] ([place], [place], [place], [place]) Address [address] [place] [address] Care Team Providers Care Dishwasher Busser Name Role Phone Unavailable Primary Care Provider Unavailabl e Encounter Details Date Type Department Care Team (Late st Contact Info) Description 02/07/[address] [facility] [place] Family Medicine [address] [place] [address] ProviderAntonette MD [address] [place] [address] Social History Tobacco Use Types [...] 02/07/2021 6:48 PM CDT [facility] PreOp Summary Primary Physician: BRAYDEN LOZA JR, JR, MD-ORT Finalized Date/Time: 02/08/21 06:51:52 Pt. Name: BELEM ROBLES/Sex: 1965 Male Med Rec #: [id number] Physician: BRAYDEN LOZA JR, JR, MD-ORT Financial #: [id number] Pt. Type: O Room/Bed: Admit/Disch: 02/07/21 11:25:00 - 02/07/21 20:32:00 [place] [facility] [place] Entry 1 In Preop 02/07/21 11:35:00 Ready for Holding n/a Room Patient Ready for 02/07/21 14:33:00 Surgery Patient Out of Preop 02/07/21 18:25:00 Patient Out of n/a Holding Room Last Modified By: CASPER, MARY 02/08/21 06:51:45 SJSofía PreOp Case Times Audit 02/08/21 06:51:45 Ankle Patch Molder: ABNER Modifier: [email or web address] <+> 1 Patient Out of Preop 02/07/21 14:33:59 Ankle Patch Molder: ABNER Modifier: [email or web address] <+> 1 Patient Ready for Surgery Finalized By: MARY SHIRLEY Document Signatures Signed By: MARY SHIRLEY 02/08/21 06:51 documented in this encounter Plan of Treatment Not on file documented as of this encounter Visit Diagnoses Not on filedocumented in this encounter
--- OUTSIDE RECORDS SUMMARY | 2025-05-14 09:39 | XMS_ITS | Encounter Summary ---
Author Organization [employer] ([place], [place], [place], [place]) Address [address] [place] [address] Care Team Providers Care Resource Management Specialist Name Role Phone Unavailable Primary Care Provider Unavailabl e Encounter Details Date Type Department Care Team (Late st Contact Info) Description 02/07/2021 Transcribed Document [facility] Family Medicine [address] [place] [address] ProviderAntonette MD [address] [place] [address] Social History Tobacco Use Types Packs/Day Years Used Date Smoking Tobacco: Never Assessed Sex and Gender Information Value Date Recorded Sex Assigned at Not on file Legal Sex Male 4:32 PM CDT Gender Identity Not on file Sexual Orientation Not on file documented as of this encounter Miscellaneous Notes * Cerner Conversion Note - Antonette Urbano MD - 02/07/2021 6:47 PM CDT [place] [id number] BELEM GARGONY :1965 Visit Time:02/07/2021 What to do next Your Diagnosis Strain of muscle(s) and tendon(s) of the rotator cuff of right shoulder, initial encounter, Strain of muscle(s) and tendon(s) of the rotator cuff of right shoulder, initial encounter Instructions From Your Care Team Remove dressing and shower post op day 3 replace with Band-Aids. Do not get incision wet. Sling off daily for elbow Range of motion. Begin PT 1-2 days for PROM. Discharge Follow Up Instructions: F/U in office in 7 to 10 days or call office Follow-Up Appointments Follow Up with BRAYDNE LOZA JR, JR, MD-ORT When Comments Keep already scheduled appointment or call office for follow up in 7-10 days. Where: [address] [facility] [address] [place] [address]- Medications What How Much When Instructions Next Dose allopurinol (allopurinol 300 mg oral tablet) 1 Tablet(s) Oral Every Day hydrochlorothiazide-lisinopril (hydroCHLOROthiazide-lisinopril 12.5 mg-10 mg oral tablet) 1 Tablet(s) Oral Every Day indomethacin (indomethacin 25 mg oral capsule) 1 Capsule(s) Oral Two Times A Day as needed for Pain home medication Take your medications faithfully. Do NOT skip [...] of unused and medications per pharmacy guidance. Education Materials General Anesthesia, Adult, Care After This sheet gives you information about how to care for yourself after your procedure. Your health care provider may also give you more specific instructions. If you have problems or questions, contact your health care provider. What can I expect after the procedure? After the procedure, the following side effects are common: ??? Pain or discomfort at the IV site. ??? Nausea. ??? Vomiting. ??? Sore throat. ??? Trouble concentrating. ??? Feeling cold or chills. ??? Weak or tired. ??? Sleepiness and fatigue. ??? Soreness and body aches. These side effects can affect parts of the body that were not involved in surgery. Follow these instructions at home: For at least 24 hours after the procedure: ??? Have a responsible adult stay with you. It is important to have someone help care for you until you are awake and alert. ??? Rest as needed. ??? Do not: ? Participate in activities in which you could fall or become injured. ? Drive. ? Use heavy machinery. ? Drink alcohol. ? Take sleeping pills or medicines that cause drowsiness. ? Make important decisions or sign legal documents. ? Take care of children on your own. Eating and drinking ??? Follow any instructions from your health care provider about eating or drinking restrictions. ??? When you feel hungry, start by eating small amounts of foods that are soft and easy to digest (bland), such as toast. Gradually return to your regular diet. ??? Drink enough fluid to keep your urine pale yellow. ??? If you vomit, rehydrate by drinking water, juice, or clear broth. General instructions ??? If you have sleep apnea, surgery and certain medicines can increase your risk for breathing problems. Follow instructions from your health care provider about wearing your sleep device: ? Anytime you are sleeping, including during daytime naps. ? While taking prescription pain medicines, sleeping medicines, or medicines that make you drowsy. ??? Return to your normal activities as told by your health care provider. Ask your health care provider what activities are safe for you. ??? Take pgac-djv-tguuauy and prescription medicines only as told by your health care provider. ??? If you smoke, do not smoke without supervision. ??? Keep all follow-up visits as told by your health care provider. This is important. Contact a health care provider if: ??? You have nausea or vomiting that does not get better with medicine. ??? You cannot eat or drink without vomiting. ??? You have pain that does not get better with medicine. ??? You are unable to pass urine. ??? You develop a skin rash. ??? You have a fever. ??? You have redness around your IV site that gets worse. Get help right away if: ??? You have difficulty breathing. ??? You have chest pain. ??? You have blood in your urine or stool, or you vomit blood. Summary ??? After the procedure, it is common to have a sore throat or nausea. It is also common to feel tired. ??? Have a responsible adult stay with you for the first 24 hours after general anesthesia. It is important to have someone help care for you until you are awake and alert. ??? When you feel hungry, start by eating small amounts of foods that are soft and easy to digest (bland), such as toast. Gradually return to your regular diet. ??? Drink enough fluid to keep your urine pale yellow. ??? Return to your normal activities as told by your health care provider. Ask your health care provider what activities are safe for you. This information is not intended to replace advice given to you by your health care provider. Make sure you discuss any questions you have with your health care provider. Document Revised: 07/17/2018 Document Reviewed: 02/27/2018 [id number] Patient Education ?? 2020 [id number] Rotator Cuff Tear Rehab After Surgery Ask your health care provider which exercises are safe for you. Do exercises exactly as told by your health care provider and adjust them as directed. It is normal to feel mild stretching, pulling, tightness, or discomfort as you do these exercises. Stop right away if you feel sudden pain or your pain gets worse. Do not begin these exercises until told by your health care provider. Stretching and zgyeg-sb-vxlbkl exercises These exercises warm up your muscles and joints and improve the movement and flexibility of your shoulder. These exercises also help to relieve pain. Shoulder pendulum In this exercise, you let the injured arm dangle toward the floor and then swing it like a clock pendulum. 1. Stand near a table or counter that you can hold onto for balance. 2. Bend forward at the waist and let your left / right arm hang straight down. Use your other arm to support you and help you stay balanced. 3. Relax your left / right arm and shoulder muscles, and move your hips and your trunk so your left / right arm swings freely. Your arm should swing because of the motion of your body, not because you are using your arm or shoulder muscles. 4. Keep moving your hips and trunk so your arm swings in the following directions, as told by your health care provider: ??? Side to side. ??? Forward and backward. ??? In clockwise and counterclockwise circles. 5. Slowly return to the starting position. Repeat times, or for seconds per direction. Complete this exercise times a day. Shoulder flexion, seated In this exercise, you raise your arm in front of your body until you feel a stretch in your injured shoulder. 1. Sit in a stable chair so your left / right forearm can rest on a flat surface. Your elbow should rest at a height that keeps your upper arm next to your body. 2. Keeping your left / right shoulder relaxed, lean forward at the waist and let your hand slide forward (flexion). Stop when you feel a stretch in your shoulder, or when you reach the angle that is recommended by your health care provider. 3. Hold for seconds. 4. Slowly return to the starting position. Repeat times. Complete this exercise times a day. Shoulder flexion, standing In this exercise, you raise your arm in front of your body (flexion) until you feel a stretch in your injured shoulder. 1. Stand and hold a broomstick, a cane, or a similar object. Place your hands a little more than shoulder width apart on the object. Your left / right hand should be palm-up, and your other hand should be palm-down. 2. Keep your elbow straight and your shoulder muscles relaxed. Push the stick up with your healthy arm to raise your left / right arm in front of your body, and then over your head until you feel a stretch in your shoulder. ??? Avoid shrugging your shoulder while you raise your arm. Keep your shoulder blade tucked down toward the middle of your back. ??? Keep your left / right shoulder muscles relaxed. 3. Hold for seconds. 4. Slowly return to the starting position. Repeat times. Complete this exercise times a day. Shoulder abduction, active-assisted You will need a stick, broom handle, or similar object to help you (assist) in doing this exercise. 1. Lie on your back. This is the supine position. Hold a broomstick, a cane, or a similar object. 2. Place your hands a little more than shoulder width apart on the object. Your left / right hand should be palm-up, and your other hand should be palm-down. 3. Keeping your shoulder relaxed, push the stick to raise your left / right arm out to your side (abduction) and then over your head. Use your other hand to help move the stick. Stop when you feel a stretch in your shoulder, or when you reach the angle that is recommended by your health care provider. ??? Avoid shrugging your shoulder while you raise your arm. Keep your shoulder blade tucked down toward the middle of your back. 4. Hold for seconds. 5. Slowly return to the starting position. Repeat times. Complete this exercise times a day. Shoulder flexion, active-assisted 1. Lie on your back. You may bend your knees for comfort. 2. Hold a broomstick, a cane, or a similar object so that your hands are about shoulder width apart. Your palms should face toward your feet. 3. Raise your left / right arm over your head, then behind your head toward the floor (flexion). Use your other hand to help you do this (active-assisted). Stop when you feel a gentle stretch in your shoulder, or when you reach the angle that is recommended by your health care provider. 4. Hold for seconds. 5. Use the stick and your other arm to help you return your left / right arm to the starting position. Repeat times. Complete this exercise times a day. External rotation 1. Sit in a stable chair without armrests, or stand up. 2. Tuck a soft object, such as a folded towel or a small ball, under your left / right upper arm. 3. Hold a broomstick, a cane, or a similar object with your palms face-down, toward the floor. Bend your elbows to a 90-degree angle (right angle), and keep your hands about shoulder width apart. 4. Straighten your healthy arm and push the stick across your body, toward your left / right side. Keep your left / right arm bent. This will rotate your left / right forearm away from your body (external rotation). 5. Hold for seconds. 6. Slowly return to the starting position. Repeat times. Complete this exercise times a day. Strengthening exercises These exercises build strength and endurance in your shoulder. Endurance is the ability to use your muscles for a long time, even after they get tired. Shoulder flexion, isometric 1. Stand or sit in a doorway, facing the door frame. 2. Keep your left / right arm straight and make a gentle fist with your hand. Place your fist against the door frame. Only your fist should be touching the frame. Keep your upper arm at your side. 3. Gently press your fist against the door frame, as if you are trying to raise your arm above your head (isometric shoulder flexion). ??? Avoid shrugging your shoulder while you press your hand into the door frame. Keep your shoulder blade tucked down toward the middle of your back. 4. Hold for seconds. 5. Slowly release the tension, and relax your muscles completely before you repeat the exercise. Repeat times. Complete this exercise times a day. Shoulder abduction, isometric 1. Stand or sit in a doorway. Your left / right arm should be closest to the door frame. 2. Keep your left / right arm straight, and place the back of your hand against the door frame. Only your hand should be touching the frame. Keep the rest of your arm close to your side. 3. Gently press the back of your hand against the door frame, as if you are trying to raise your arm out to the side (isometric shoulder abduction). ??? Avoid shrugging your shoulder while you press your hand into the door frame. Keep your shoulder blade tucked down toward the middle of your back. 4. Hold for seconds. 5. Slowly release the tension, and relax your muscles completely before you repeat the exercise. Repeat times. Complete this exercise times a day. Internal rotation, isometric This is an exercise in which you press your palm against a door frame without moving your shoulder joint (isometric). 1. Stand or sit in a doorway, facing the door frame. 2. Bend your left / right elbow, and place the palm of your hand against the door frame. Only your palm should be touching the frame. Keep your upper arm at your side. 3. Gently press your hand against the door frame, as if you are trying to push your arm toward your abdomen (internal rotation). Gradually increase the pressure until you are pressing as hard as you can. Stop increasing the pressure if you feel shoulder pain. ??? Avoid shrugging your shoulder while you press your hand into the door frame. Keep your shoulder blade tucked down toward the middle of your back. 4. Hold for seconds. 5. Slowly release the tension, and relax your muscles completely before you repeat the exercise. Repeat times. Complete this exercise times a day. External rotation, isometric This is an exercise in which you press the back of your wrist against a door frame without moving your shoulder joint (isometric). 1. Stand or sit in a doorway, facing the door frame. 2. Bend your left / right elbow and place the back of your wrist against the door frame. Only the back of your wrist should be touching the frame. Keep your upper arm at your side. 3. Gently press your wrist against the door frame, as if you are trying to push your arm away from your abdomen (external rotation). Gradually increase the pressure until you are pressing as hard as you can. Stop increasing the pressure if you feel pain. ??? Avoid shrugging your shoulder while you press your wrist into the door frame. Keep your shoulder blade tucked down toward the middle of your back. 4. Hold for seconds. 5. Slowly release the tension, and relax your muscles completely before you repeat the exercise. Repeat times. Complete this exercise times a day. This information is not intended to replace advice given to you by your health care provider. Make sure you discuss any questions you have with your health care provider. Document Revised: 11/05/2019 Document Reviewed: 10/26/2019 [employer] Patient Education ?? 2020 [id number] Rotator Cuff Tear A rotator cuff tear is a partial or complete tear of the cord-like bands (tendons) that connect muscle to bone in the rotator cuff. The rotator cuff is a group of muscles and tendons that surround the shoulder joint and keep the upper arm bone (humerus) in the shoulder socket. The tear can occur suddenly (acute tear) or can develop over a long period of time (chronic tear). What are the causes? Acute tears may be caused by: ??? A fall, especially on an outstretched arm. ??? Lifting very heavy objects with a jerking motion. Chronic tears may be caused by overuse of the muscles. This may happen in sports, physical work, or activities in which your arm repeatedly moves over your head. What increases the risk? This condition is more likely to occur in: ??? Athletes and workers who frequently use their shoulder or reach over their heads. This may include activities such as: ? Tennis. ? Baseball and softball. ? Swimming and rowing. ? Weightlifting. ? Construction work. ? Painting. ??? People who smoke. ??? Older people who have arthritis or poor blood supply. These can make the muscles and tendons weaker. What are the signs or symptoms? Symptoms of this condition depend on the type and severity of the injury: ??? An acute tear may include a sudden tearing feeling, followed by severe pain that goes from your upper shoulder, down your arm, and toward your elbow. ??? A chronic tear includes a gradual weakness and decreased shoulder motion as the pain gets worse. The pain is usually worse at night. Both types may have symptoms such as: ??? Pain that spreads (radiates) from the shoulder to the upper arm. ??? Swelling and tenderness in front of the shoulder. ??? Decreased range of motion. ??? Pain when: ? Reaching, pulling, or lifting the arm above the head. ? Lowering the arm from above the head. ??? Not being able to raise your arm out to the side. ??? Difficulty placing the arm behind your back. How is this diagnosed? This condition is diagnosed with a medical history and physical exam. Imaging tests may also be done, including: ??? X-rays. ??? MRI. ??? Ultrasound. ??? CT or MR arthrogram. During this test, a contrast material is injected into your shoulder and then images are taken. How is this treated? Treatment for this condition depends on the type and severity of the condition. In less severe cases, treatment may include: ??? Rest. This may be done with a sling that holds the shoulder still (immobilization). Your health care provider may also recommend avoiding activities that involve lifting your arm over your head. ??? Icing the shoulder. ??? Anti-inflammatory medicines, such as aspirin or ibuprofen. ??? Strengthening and stretching exercises. Your health care provider may recommend specific exercises to improve your range of motion and strengthen your shoulder. In more severe cases, treatment may include: ??? Physical therapy. ??? Steroid injections. ??? Surgery. Follow these instructions at home: Managing pain, stiffness, and swelling ??? If directed, put ice on the injured area. ? If you have a removable sling, remove it as told by your health care provider. ? Put ice in a plastic bag. ? Place a towel between your skin and the bag. ? Leave the ice on for 20 minutes, 2???3 times a day. ??? Raise (elevate) the injured area above the level of your heart while you are lying down. ??? Find a comfortable sleeping position or sleep on a recliner, if available. ??? Move your fingers often to avoid stiffness and to lessen swelling. ??? Once the swelling has gone down, your health care provider may direct you to apply heat to relax the muscles. Use the heat source that your health care provider recommends, such as a moist heat pack or a heating pad. ? Place a towel between your skin and the heat source. ? Leave the heat on for 20???30 minutes. ? Remove the heat if your skin turns bright red. This is especially important if you are unable to feel pain, heat, or cold. You may have a greater risk of getting burned. If you have a sling: ??? Wear the sling as told by your health care provider. Remove it only as told by your health care provider. ??? Loosen the sling if your fingers tingle, become numb, or turn cold and blue. ??? Keep the sling clean. ??? If the sling is not waterproof: ? Do not let it get wet. ? Cover it with a watertight covering when you take a bath or a shower. Driving ??? Do not drive or use heavy machinery while taking prescription pain medicine. ??? Ask your health care provider when it is safe to drive if you have a sling on your arm. Activity ??? Rest your shoulder as told by your health care provider. ??? Return to your normal activities as told by your health care provider. Ask your health care provider what activities are safe for you. ??? Do any exercises or stretches as told by your health care provider. General instructions ??? Do not use any products that contain nicotine or tobacco, such as cigarettes and e-cigarettes. If you need help quitting, ask your health care provider. ??? Take jjwe-trc-lybebcb and prescription medicines only as told by your health care provider. ??? Keep all follow-up visits as told by your health care provider. This is important. Contact a health care provider if: ??? Your pain gets worse. ??? You have new pain in your arm, hands, or fingers. ??? Medicine does not help your pain. Get help right away if: ??? Your arm, hand, or fingers are numb or tingling. ??? Your arm, hand, or fingers are swollen or painful or they turn white or blue. ??? Your hand or fingers on your injured arm are colder than your other hand. Summary ??? A rotator cuff tear is a partial or complete tear of the cord-like bands (tendons) that connect muscle to bone in the rotator cuff. ??? The tear can occur suddenly (acute tear) or can develop over a long period of time (chronic tear). ??? Treatment generally includes rest, anti-inflammatory medicines, and icing. In some cases, physical therapy and steroid injections may be needed. In severe cases, surgery may be needed. This information is not intended to replace advice given to you by your health care provider. Make sure you discuss any questions you have with your health care provider. Document Revised: 06/26/2018 Document Reviewed: 09/29/2017 [id number] Patient Education ?? 2020 [id number] Tendon Repair, Care After This sheet gives you information about how to care for yourself after your procedure. Your health care provider may also give you more specific instructions. If you have problems or questions, contact your health care provider. What can I expect after the procedure? After the procedure, it is common to have: ??? Soreness or pain. ??? Stiffness. ??? Limited range of motion in the joint where the tendon is repaired. Follow these instructions at home: If you have a splint or brace: ??? Wear the splint or brace as told by your health care provider. Remove it only as told by your health care provider. ??? Loosen the splint or brace if your fingers or toes tingle, become numb, or turn cold and blue. ??? Keep the splint or brace clean and dry. If you have a cast: ??? Do not stick anything inside the cast to scratch your skin. Doing that increases your risk of infection. ??? Check the skin around the cast every day. Tell your health care provider about any concerns. ??? You may put lotion on dry skin around the edges of the cast. Do not put lotion on the skin underneath the cast. ??? Keep the cast clean and dry. Bathing ??? Do not take baths, swim, or use a hot tub until your health care provider approves. Ask your health care provider if you may take showers. You may only be allowed to take sponge baths. ??? If your splint, brace, or cast is not waterproof: ? Do not let it get wet. ? Cover it with a watertight covering when you take a bath or a shower. ??? Keep the bandage (dressing) dry until your health care provider says it can be removed. Medicines ??? Take nqfq-ftk-ycsbput and prescription medicines only as told by your health care provider. ??? Do not drive or use heavy machinery while taking prescription pain medicine. Incision care ??? Follow instructions from your health care provider about how to take care of your incision. Make sure you: ? Wash your hands with soap and water before you change your dressing. If soap and water are not available, use hand polygraph examiner. ? Change your dressing as told by your health care provider. ? Leave stitches (sutures), skin glue, or adhesive strips in place. These skin closures may need to stay in place for 2 weeks or longer. If adhesive strip edges start to loosen and curl up, you may trim the loose edges. Do not remove adhesive strips completely unless your health care provider tells you to do that. ??? Check your incision area every day for signs of infection. Check for: ? Redness, swelling, or pain. ? Fluid or blood. ? Warmth. ? Pus or a bad smell. Managing pain, stiffness, and swelling ??? If directed, put ice on the affected area. ? If you have a removable splint or brace, remove it as told by your health care provider. ? Put ice in a plastic bag. ? Place a towel between your skin and the bag, or between your cast and the bag. ? Leave the ice on for 20 minutes, 2???3 times a day. ??? Move your fingers or toes often to avoid stiffness and to lessen swelling. ??? Raise (elevate) the injured area above the level of your heart while you are sitting or lying down. Activity ??? Rest as told by your health care provider. ??? Ask your health care provider what activities are safe for you during recovery, and ask what activities you need to avoid. ??? Do not lift anything that is heavier than 10 lb (4.5 kg), or the limit that you are told, until your health care provider says that it is safe. ??? Do not use the injured limb to support your body weight until your health care provider says that you can. ??? If physical therapy was prescribed, do exercises as directed. Doing exercises may help to improve movement and flexibility (range of motion). General instructions ??? Do not put pressure on any part of the cast or splint until it is fully hardened. This may take several hours. ??? Do not use any products that contain nicotine or tobacco, such as cigarettes and e-cigarettes. These can delay tendon healing. If you need help quitting, ask your health care provider. ??? Ask your health care provider when it is safe to drive if you have a splint, brace, sling, or cast on your arm or leg. ??? If you are taking prescription pain medicine, take actions to prevent or treat constipation. Your health care provider may recommend that you: ? Drink enough fluid to keep your urine pale yellow. ? Eat foods that are high in fiber, such as fresh fruits and vegetables, whole grains, and beans. ? Limit foods that are high in fat and processed sugars, such as fried or sweet foods. ? Take an vihg-hza-mxllbpz or prescription medicine for constipation. ??? Keep all follow-up visits as told by your health care provider. This is important. Contact a health care provider if: ??? You have redness, swelling, or pain at your incision site. ??? You have fluid or blood coming from your incision site. ??? Your incision feels warm to the touch. ??? You have pus coming from your incision site. ??? You have a bad smell coming from: ? The incision site or dressing. ? Underneath your cast or splint. ??? You have a fever. ??? Your stiffness or movement is not improving. Get help right away if: ??? You have trouble breathing. ??? You have chest pain. ??? Your heart beats more quickly than normal, or you feel it skipping beats. ??? You have severe pain. Summary ??? After the procedure, it is common to have pain, stiffness, and limited range of motion. ??? If your splint, brace, or cast is not waterproof, do not let it get wet. ??? Contact your health care provider if you have blood, fluid, or pus coming from your incision site. This information is not intended to replace advice given to you by your health care provider. Make sure you discuss any questions you have with your health care provider. Document Revised: 07/08/2018 Document Reviewed: 07/08/2018 Elsevier Patient Education ?? 2020 Elsevier Inc. Emergency Awareness and Preventative Care STROKE [...] Assistance with quitting is available by contacting 7-579-GDMUNOW. This is a free resource providing counseling, support, and referral. Or you may contact your personal physician. National Suicide Prevention Lifeline: The National Suicide Prevention [...] and how to prevent infections, visit www.cdc.gov/sepsis. Test Results Laboratory or Other Results This Visit (last charted value for your 02/07/2021 visit) Microbiology 02/05/2021 2:00 PM SARS-CoV-2 (COVID19 PCR): Negative Patient Name:BELEM GARGALFREDA I have received this information and was given the opportunity to ask questions. Patient/Inseam Leveler Name: Patient/Inseam Leveler Signature: Relationship to Patient: Clinician/Hospital Inseam Leveler Signature: Date: Electronically signed by Branden, [facility] Conversion Charlene Kent at 11/12/2022 11:17 AM CDT documented in this encounter Plan of Treatment Not on file documented as of this encounter Visit Diagnoses Not on filedocumented in this encounter
--- OUTSIDE RECORDS SUMMARY | 2025-05-14 09:39 | XMS_ITS | Clinical Summary ---
Author Organization Healthcare Address [address] [place] [address] Care Team Providers Care Rug Setter Velvet Name Role Phone Unavailable Primary Care Provider Unavailabl e Social History Tobacco Use Types Packs/Day Years Used Date Smoking Tobacco: Never Assessed Sex and Gender Information Value Date Recorded Sex Assigned at Not on file Legal Sex Male 8:10 PM EDT Gender Identity Not on file Sexual Orientation Not on file Plan of Treatment Health Maintenance Due Date Last Done Comments [facility]-Depression Screening 1965 [facility]-/Child/Adol SDOH Screenings 1965 [facility]- SDOH Screenings 1981 [facility]-Adult SDOH Screenings 1981 [facility]-DTaP,Tdap,and Td Vaccine s (1 - Tdap) 1982 CT Colonography 01/22/2008 Colonoscopy 01/22/2008 FIT-DNA 01/22/2008 FIT 01/22/2008 FOBT 01/22/2008 Sigmoidoscopy 01/22/2008 [facility]-Colorectal Cancer Screening 01/22/2008 [facility]-Pneumococcal Vaccine: 50 + Years (1 of 1 - PCV) 2013 [facility]-Zoster Vaccines (1 of 2) 2013 LBI-SYZSL-62 Vaccine (1 - 20 24-25 season) 2025 [facility]-Influenza Vaccine (#1) 2025 [facility]-RSV Vaccine: 60+ Years o r (1 - 1-dose 75+ series) 2038 HPV Vaccines Aged Out No longer eligi ble based on patient's age to complete this topic [facility]-HIB Vaccines Aged Out No longer e ligible based on patient's age to complete this topic [facility]-Hepatitis A Vaccines Aged Out No longer eligible based on patient's age to complete this topic [facility]-IPV Vaccines Aged Out No longer e ligible based on patient's age to complete this topic [facility]-Rotavirus Vaccines Aged Out No lo nger eligible based on patient's age to complete this topic
--- OUTSIDE RECORDS SUMMARY | 2025-05-14 09:39 | XMS_ITS | Encounter Summary ---
Author Organization [employer] ([place], [place], [place], [place]) Address [address] [place] [address] Care Team Providers Care Vehicle Monitor Technician Name Role Phone Unavailable Primary Care Provider Unavailabl e Encounter Details Date Type Department Care Team (Late st Contact Info) Description 02/07/2021 Transcribed Document [facility] [place] [address] [place] [address] ProviderAntonette MD [address] [place] [address] Social History Tobacco Use Types Packs/Day Years Used Date Smoking Tobacco: Never Assessed Sex and Gender Information Value Date Recorded Sex Assigned at Not on file Legal Sex Male 4:32 PM CDT Gender Identity Not on file Sexual Orientation Not on file documented as of this encounter Miscellaneous Notes * [employer]ner Conversion Note - Historical ProviderMD - 02/07/2021 6:48 PM CDT [facility] Estr[facility] OR PACU Summary Primary Physician: BRAYDEN LOZA JR, JR, MD-ORT Finalized Date/Time: 02/07/21 20:46:55 Pt. Name: BELEM ROBLES/Sex: 1965 Male Med Rec #: [id number] Physician: BRAYDEN LOZA JR, JR, MD-ORT Financial #: [id number] Pt. Type: O Room/Bed: Admit/Disch: 02/07/21 11:25:00 - Institution: [facility] OR PACU Case Times Entry 1 In PACU I 02/07/21 19:46:00 Ready for PACU 02/07/21 20:32:00 Discharge Discharge from PACU 02/07/21 20:32:00 I Last Modified By: GRIFFIN GAGE RN 02/07/21 20:46:53 Finalized By: GRIFFIN GAGE, RN Document Signatures Signed By: GRIFFIN GAGE RN 02/07/21 20:46 Electronically signed by Marcelino Otero Conversion Business Education Instructor Cerner at 11/12/2022 11:30 AM CDT documented in this encounter Plan of Treatment Not on file documented as of this encounter Visit Diagnoses Not on filedocumented in this encounter
--- OUTSIDE RECORDS SUMMARY | 2025-05-14 09:39 | XMS_ITS | Encounter Summary ---
Author Organization [employer] ([place], [place], [place], [place]) Address [address] [place] [address] Care Team Providers Care Private Detective Name Role Phone Unavailable Primary Care Provider Unavailabl e Encounter Details Date Type Department Care Team (Late st Contact Info) Description 02/07/[address] [facility] [place] Family Medicine [address] [place] [address] ProviderAntonette MD [address] [place] [address] Social History Tobacco Use Types Packs/Day Years Used Date Smoking Tobacco: Never Assessed Sex and Gender Information Value Date Recorded Sex Assigned at Not on file Legal Sex Male 4:32 PM CDT Gender Identity Not on file Sexual Orientation Not on file documented as of this encounter Miscellaneous Notes * [employer]ner Conversion Note - Antonette Urbano MD - 02/07/2021 6:40 PM CDT Patient Education Materials Follows: Rotator Cuff Tear Rehab After Surgery Ask [...] by your health care provider. Stretching and piftk-tt-eorhvo exercises These exercises warm up your muscles [...] provider. Document Revised: 11/05/2019 Document Reviewed: 10/26/2019 [employer] Patient Education ? 2020 [employer]. Rotator Cuff Tear A rotator cuff tear [...] Leave the ice on for 20 minutes, 2?3 times a day. ??? Raise (elevate) the [...] source. ? Leave the heat on for 20?30 minutes. ? Remove the heat if your [...] ask your health care provider. ??? Take qzdp-kop-jgpmpwj and prescription medicines only as told by [...] provider. Document Revised: 06/26/2018 Document Reviewed: 09/29/2017 [employer] Patient Education ? 2020 [employer] Tendon Repair, Care After This sheet [...] it can be removed. Medicines ??? Take jfik-vkd-kohefkl and prescription medicines only as told by [...] and water are not available, use hand team leader/research psychologist. ? Change your dressing as told by [...] Leave the ice on for 20 minutes, 2?3 times a day. ??? Move your fingers [...] fried or sweet foods. ? Take an nepu-yfv-ifpepgw or prescription medicine for constipation. ??? Keep [...] provider. Document Revised: 07/08/2018 Document Reviewed: 07/08/2018 [employer] Patient Education ? 2020 [employer]. Pharmacology General Anesthesia, Adult, Care After This sheet [...] activities are safe for you. ??? Take znkj-ghc-tothogv and prescription medicines only as told by [...] provider. Document Revised: 07/17/2018 Document Reviewed: 02/27/2018 [employer] Patient Education ? 2020 [employer] documented in this encounter Plan of Treatment Not on file documented as of this encounter Visit Diagnoses Not on filedocumented in this encounter
--- OUTSIDE RECORDS SUMMARY | 2025-05-14 09:39 | XMS_ITS | Encounter Summary ---
Author Organization [employer] ([place], [place], [place], [place]) Address [address] [place] [address] Care Team Providers Care Malt Roaster Name Role Phone Unavailable Primary Care Provider Unavailabl e Encounter Details Date Type Department Care Team (Late st Contact Info) Description 02/05/2019 Transcribed Document [facility] [place] Medicine [address] [place] [address] ProviderAntonette MD [address] [place] [address] Social History Tobacco Use Types [...] ProviderMD - 02/05/2019 11:00 AM CDT ED Triage Entered On: 02/05/2019 11:14 EDT Performed On: 02/05/2019 11:11 EDT by DEBBIE ZELAYA RN ED Triage Across the Room Triage Date/Time : 02/05/2019 11:11 EDT Chief Complaint : from [facility] w.[facility]/o R.knee pain/swelling since Fri.; pt reports it as a 'gout attack'; current w/pain mgmt, who referred him to a canvas worker that he has been unable to obtain an appt. with; Hx gout, GERD, esophageal ulcer, +smoker DEBBIE ZELAYA RN - 02/05/2019 11:11 EDT DCP GENERIC CODE Tracking Acuity : 3 - Urgent Tracking Group : [facility] ED DEBBIE ZELAYA RN - 02/05/2019 11:11 EDT Mode of Arrival : Ambulatory Transported to ED by : Private vehicle To Room Via : Ambulate Accompanied By : Unaccompanied ED Vital Signs : Document Height & Weight : Document ED Allergies : Document ED Reason for Visit : Document Tetanus Immunization : Unknown DEBBIE ZELAYA RN - 02/05/2019 11:11 EDT Infectious Disease History Infectious Disease History : Chicken pox/Shingles, Influenza Fever/Chills Last 48 Hours : No Travel To Regions with Travel Advisories : No Travel Outside [place] Within Last 30 Days : No Contact With Traveler to Advisory Region : No Tuberculosis Symptoms : None DEBBIE ZELAYA RN - 02/05/2019 11:11 EDT Vital Signs ED Temperature Source : Oral Temperature Mode : Fahrenheit Temperature, Fahrenheit : 97.9 Deg F Clinical Temperature, C : 36.6 Deg C Oxygen Therapy Mode : Room air Peripheral Pulse Rate : 100 bpm Respiratory Rate : 18 Breaths/Min Systolic Blood Pressure : 137 mmHg Diastolic Blood Pressure : 68 mmHg Oxygen Saturation : 93 % (LOW) DEBBIE ZELAYA RN - 02/05/2019 11:11 EDT Allergy (As Of: 02/05/2019 11:14:03 EDT) Allergies (Active) No Known Medication Allergies Estimated Onset Date: Unspecified ; Created By: SONAM JOHN RN; Reaction Status: Active ; Category: Drug ; Substance: No Known Medication Allergies ; Type: Allergy ; Updated By: SONAM JOHN RN; Reviewed Date: 02/05/2019 11:12 EDT Diagnosis Control ED (As Of: 02/05/2019 11:14:03 EDT) Problems(Active) Diverticula of colon (SNOMED CT :1345165435 ) Name of Problem: Diverticula of colon ; Recorder: BIANCA MEYER RN; Confirmation: Confirmed ; Classification: Medical ; Code: [id number] ; Contributor System: [employer] ; Last Updated: 01/10/2014 9:36 EDT ; Life Cycle Date: 01/10/2014 ; Life Cycle Status: Active ; Vocabulary: SNOMED CT GERD (gastroesophageal reflux disease) (SNOMED CT :282042666 ) Name of Problem: GERD (gastroesophageal reflux disease) ; Recorder: BIANCA MEYER RN; Confirmation: Confirmed ; Classification: Medical ; Code: [id number] ; Contributor System: [employer] ; Last Updated: 01/10/2014 9:36 EDT ; Life Cycle Date: 01/10/2014 ; Life Cycle Status: Active ; Vocabulary: SNOMED CT Gout (SNOMED CT :134666334 ) Name of Problem: Gout ; Recorder: AYANA RAGSDALE RN; Confirmation: Confirmed ; Classification: Medical ; Code: [id number] ; Contributor System: [employer] ; Last Updated: 12/21/2013 9:38 EDT ; Life Cycle Date: 12/21/2013 ; Life Cycle Status: Active ; Vocabulary: SNOMED CT Ulcer of esophagus with bleeding (SNOMED CT :27009459 ) Name of Problem: Ulcer of esophagus with bleeding ; Recorder: BIANCA MEYER RN; Confirmation: Confirmed ; Classification: Medical ; Code: [id number] ; Contributor System: [employer] ; Last Updated: 01/10/2014 9:37 EDT ; Life Cycle Date: 01/10/2014 ; Life Cycle Status: Active ; Vocabulary: SNOMED CT Diagnoses(Active) Knee pain-swelling Date: 02/05/2019 ; Diagnosis Type: Reason For Visit ; Confirmation: Complaint of ; Clinical Dx: Knee pain-swelling ; Classification: Medical ; Clinical Service: Emergency medicine ; Code: PNED ; Probability: 0 ; Diagnosis Code: [id number] ED Height and Weight Height Source : Stated Height Entry Format : [place] Height, Feet : 5 ft(Converted to: 152 cm, 60 Inch) Height, Inches : 6 Inch(Converted to: 0 ft 6 Inch, 15.24 cm) Clinical Height : 167.64 cm Weight Source, ED : Critical estimated dosing weight Weight Entry Format : [place] Weight, Pounds : 175 lb Clinical Dosing Weight : 79.55 kg Body Surface Area (BSA) : 1.89 m2 Body Mass Index : 28.3 kg/m2 (HI) [place] Body Weight (IBW) : 62.88 kg DEBBIE ZELAYA RN - 02/05/2019 11:11 EDT documented in this encounter Plan of Treatment Not on file documented as of this encounter Visit Diagnoses Not on filedocumented in this encounter
--- OUTSIDE RECORDS SUMMARY | 2025-05-14 09:39 | XMS_ITS | Encounter Summary ---
Author Organization [employer] ([place], [place], [place], [place]) Address [address] [place] [address] Care Team Providers Care Roustabout Pusher Name Role Phone Unavailable Primary Care Provider Unavailabl e Encounter Details Date Type Department Care Team (Late st Contact Info) Description 02/05/2019 Transcribed Document [facility] [place] [address] [place] [address] ProviderAntonette MD [address] [place] [address] Social History Tobacco Use Types Packs/Day Years Used Date Smoking Tobacco: Never Assessed Sex and Gender Information Value Date Recorded Sex Assigned at Not on file Legal Sex Male 4:32 PM CDT Gender Identity Not on file Sexual Orientation Not on file documented as of this encounter Miscellaneous Notes * [employer]ner Conversion Note - Historical ProviderMD - 02/05/2019 12:19 PM CDT documented in this encounter Plan of Treatment Not on file documented as of this encounter Visit Diagnoses Not on filedocumented in this encounter
--- OUTSIDE RECORDS SUMMARY | 2025-05-14 09:39 | XMS_ITS | Continuity of Care Document ---
Author Organization [facility], PAIN MEDICINE [address] Address [address] [place] [address] Care Team Providers Care Director Of Extension Work Name Role Phone ALFREDO TAYLOR Primary Care Provider Assessment Encounter Date Assessment Date Assessment LastModified by Organization Details LastModified Time 05/02/2025 05/02/2025 Plan: I have personally reviewed this patient's JESUS report as per [place] medical board guidelines and it was found to be appropriate. Patient signed pain management agreement per clinic policy. The medication is or continues to be in the best interest of patient centered care. Schedule II, III or IV medications were provided for symptom or disease control. Risks and benefits of such medications were discussed with the patient. Labs: The pt was not sent for urine drug testing today. The pt is prescribed chronic pain medication. The confirmation of urine testing on 06/03/19 was positive for norhydrocodone, hydrocodone, and hydromorphone. Appears appropriate. The confirmation of urine testing on 02/02/20 was positive for hydrocodone, norhydrocodone, and hydromorphone. Appears appropriate. The confirmation of urine testing on 09/28/20 was positive for hydrocodone, norhydrocodone, hydromorphone. Appears appropriate. The confirmation of urine testing on 03/12/22 was positive for hydrocodone, norhydrocodone, and hydromorphone. The confirmation of urine testing on 11/13/22 was positive for hydrocodone, norhydrocodone, and hydromorphone. Appears appropriate. The confirmation of urine testing on 09/10/23 was positive for hydrocodone, norhydrocodone, and hydromorphone. Appears appropriate. The confirmation of urine testing on 08/30/24 was positive for hydrocodone, norhydrocodone, and hydromorphone. Appears appropriate. Psychological Evaluation: The pt will be referred, in the future, to the psychologist for evaluation of the chronic pain and risk assessment. The pt is aware of this. Physical Therapy/Activit ies/Exercise: We did not discuss exercise. The pt works in [employer] and is active. (From a previous ov: The pt underwent right shoulder sx. He has finished PT and is doing his HEP.) Medications: Will continue norco 10/325, 4x/day. The pt denies any problems. He states the medication allows him to get up and go, function. (From ov on 01/16/22:The pt asked for an increase due to the gout and not being able to take indomethacin.) No problems with the medication. He states the medication allows him to be up and go to work. He states it also dulls the pain. Dates: 05/05-06/04- Preventative Care: Dr. Taylor. Return to Clinic in two months to f/u on the treatment plan. [email or web address] Not available 05/02/2025 16:54:13 Plan of Treatment Reminders Order Date Submit Date Provider Last Modified By Organization Details Last Modified Time Details Appointments RECHECK 2024 02:30P Blanca AMES MD Not available Not available Not available Lab None recorded. Referral None recorded. Procedures None recorded. Surgeries None recorded. Imaging None recorded. Medication Orders hydrocodo ne 10 mg-acetam inophen 325 mg tablet 2024 025 [facility], [address] [place] [address], [id number], 05/02/2025 15:08:15 hydrocodo ne 10 mg-acetam inophen 325 mg tablet 2024 025 [facility], [address] [place] [address], [id number], 05/02/2025 15:08:14 Patient TargetsNo targets recorded. Patient InstructionsNo instructions recorded. Reason for Referral None Reported. 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 95064003224 9103 Active 2014 From [employer];Pro vider: Chepe Loredo;S tatus: Active Not Available [facility] 2 23:01:19 Chronic gouty arthriti s 54308051 Active 2015 From [employer];Pro vider: Bailee Neri; Status: Active Not Available [facility] 2 23:01:19 Knee joint effusion 445246090 Completed 201512/17/2019 From [employer];Pro vider: Bailee Neri; Status: Active TRISH Isaac DO [address] [place] [address], [phone] , [facility] 0 19:57:22 Type 2 diabetes mellitus without complica tion 776997896 Active 2019 Not Available [facility] 2 23:01:19 Lung mass 090985796 Active 2023 MARJ VELAZCO MD [address] [place] [address], [phone] , [facility] 4 08:48:18 Chronic obstruct hilda pulmonar y disease 69606268 Active 2023 MARJ VELAZCO MD [address] [place] [address], [phone] , [facility] 4 10:20:19 Tobacco dependen ce syndrome 85801573 Active 2023 MARJ VELAZCO MD [address] [place], [address] , [facility] 4 10:23:20 Nicotine dependen ce 41137223 Active 2023 [place] [address] [place] [address], [phone] , [facility] 4 15:44:59 Solitary nodule of lung 808473361 Active 2023 MARJ VELAZCO MD [address] [place] [address], [phone] , [facility] 4 15:47:10 Solitary nodule of lung 988820238 Active 2023 MARJ VELAZCO MD [address] [place], [address] , [facility] 4 15:55:30 Nicotine dependen ce 45444252 Active 2023 MARJ VELAZCO MD [address] [place] [address], [phone] , [facility] 15:55:30 Problem Notes None recorded. Procedures Surgical History Date Name Laterality Status Provider Name and Address Organization Details Recorded Time 02/24/20 24 Airway Resistance completed Shannon Francesca [facility] 02/24/2024 10:19:23 02/24/20 24 Diffusion Capacity completed Shannon Francesca [facility] 02/24/2024 10:19:17 02/24/20 24 Lung Volumes, [facility] 10:19:20 02/24/20 24 Demonstration Aerosol/Generator/N ebulizer/Opt[facility]ambe r [facility]24 10:20:07 02/24/20 24 Pulmonary Function Testing completed MARJ VELAZCO MD [address] [place] [address], [phone], [facility] 02/24/2024 15:02:06 02/24/20 24 Spirometry with Bronchodilator completed Shannon Ma [facility] 02/24/2024 10:19:44 03/14/20 22 Echocardiogram completed RASHMI FANG MD [address] [place] [address], [phone], [facility] 03/14/2022 09:09:30 03/14/20 22 Stress Test - Nuclear completed RASHMI FANG MD [address] [place] [address], [phone], [facility] 03/14/2022 12:49:47 02/29/20 22 EKG completed Shirley Hernandez [facility] 02/28/2022 13:28:13 02/22/20 22 EKG completed ALFREDO TAYLOR MD [address] [place] [address], [phone] [place] [address] 02/21/2022 16:32:59 01/25/20 21 EKG completed ALFREDO TAYLOR MD [address] [place] [address], [phone], [facility] 01/24/2021 11:01:05 Shoulder joint surgery completed Shanice Durham [facility] 04/19/2021 13:20:21 procedure on knee completed Shannon Ma [facility] 02/24/2024 09:40:36 Imaging Results None recorded. Procedure Notes None recorded. Medical Equipment None Reported. Allergies No known drug allergies Medications Name Sig Start Date Stop Date Status Note LastModified by Organization Details LastModified Time metformin 500 mg tablet TAKE 3 TABLETS BY MOUTH DAILY WITH FOOD 05/18 completed Not Available Not Available Not Available atorvasta tin 20 mg tablet Take 1 tablet every day by oral route 2024 active Not Available Not Available Not Avai lable Keflex 500 mg capsule Take 1 capsule every 6 hours by oral route for 10 days. 09/08 completed Not Available Not Available Not Available Medrol ([place]) 4 mg tablets in a dose pack Take 1 tablet every day by oral route as directed . 01/24 completed Not Available Not Available Not Available prednison e 20 mg tablet TAKE 2 TABLETS daily x 5 days 2024 active Not Available Not Available Not Avai lable prednison e 5 mg tablet Daily 05/30 completed Instruct ions: take 3 tabs daily for 2 weeks; 2 tabs daily for 2 weeks then 1 tab daily;Fr equency: daily;Me dication Descript ion: predniso ne; Dosage:a s directed ; Route:or al; refills: 0; Quantity :90 tablet Not Available Not Available Not Available hydrocodo ne 10 mg-acetam inophen 325 mg tablet Take 1 tablet 4 times a day by oral route for 30 days. 2024 active Not Available Not Available Not Avai lable doxycycli ne monohydra te 100 mg tablet Take 1 tablet twice a day by oral route. 2023 active finished Not Available Not Available Not Avai lable tramadol 50 mg tablet Take 1 tablet 3 times a day by oral route as needed. 12/16 completed Not Available Not Available Not Available triamcino lone acetonide 0.1 % topical cream APPLY A THIN LAYER TO THE AFFECTED AREA(S) BY TOPICAL ROUTE 2 TIMES PER DAY as needed 2024 active Not Available Not Available Not Avai lable glimepiri de 2 mg tablet TAKE ONE TABLET BY MOUTH TWICE DAILY WITH FOOD 02/15 completed Not Available Not Available Not Available methotrex ate sodium 2.5 mg tablet Every week 12/09 completed Instruct ions: Take 4 tablets once weekly x 2 weeks then 6 tabs once weekly. Go for monthly lab.;Power quency: Every week;Med ication Descript ion: methotre xate; Dosage:a s directed ; Route:or al; refills: 3; Quantity :24 tablet Not Available Not Available Not Available Silvadene 1 % topical cream APPLY A 1/16 INCH (1.5 MM) THICK LAYER TO ENTIRE BURN AREA BY TOPICALR OUTE 2 TIMES PER DAY 12/16 completed Not Available Not Available Not Available nicotine (polacril ex) 4 mg gum Chew 1 piece of gum every 2 hours by oral route as needed. 2023 active Not Available Not Available Not Avai lable Flagyl 500 mg tablet Take 1 tablet 3 times a day by oral route. 05/30 completed Not Available Not Available Not Available Cipro 500 mg tablet Take 1 tablet twice a day by oral route. 05/30 completed Not Available Not Available Not Available lisinopri l 10 mg tablet Take 1 tablet every day by oral route 2024 active Not Available Not Available Not Avai lable glimepiri de 4 mg tablet 0.5 tab in a.m. and 1 tab in p.m.-bot h with food 2024 active Not Available Not Available Not Avai lable indometha teodora 50 mg capsule TAKE 1 CAPSULE BY MOUTH THREE TIMES A DAY NEEDED active Not Available Not Available No t Available Glucophag e XR 500 mg tablet,ex tended release As Directed 05/30 completed Duration : 30 days;Ins truction s: 1 pill daily with food x 1 week, then 2 pills together daily with food;Power quency: as direct.; Medicati on Descript ion: metformi n; Dosage:a s directed ; Route:or al; refills: 5; Quantity :60 tablet, extended release Not Available Not Available Not Available folic acid 1 mg tablet Daily 05/30 completed Duration : 30 days;Power quency: daily;Me dication Descript ion: folic acid; Dosage:1 ; Route:or al; refills: 3; Quantity :30 tablet Not Available Not Available Not Available allopurin ol 300 mg tablet TAKE 1 TABLET BY MOUTH EVERY DAY 2024 active Not Available Not Available Not Avai lable lisinopri l 10 mg-hydroc hlorothia zide 12.5 mg tablet TAKE 1 TABLET BY MOUTH EVERY DAY 05/14 completed Not Available Not Available Not Available [place] 7.5 mg-325 mg tablet Take 1 tablet 3 times a day by oral route as needed for 30 days. 12/16 completed Not Available Not Available Not Available albuterol sulfate HFA 90 mcg/actua tion aerosol inhaler Inhale 2 puffs every 4-6 hours as needed. 2024 active Not Available Not Available Not Avai lable colchicin e 0.6 mg tablet Take 1 tablet twice a day by oral route. 12/16 completed Not Available Not Available Not Available probeneci d 500 mg tablet TAKE 1 TABLET TWICE A DAY/ PT NEEDS APT PRIOR TO ANY MORE REFILLS 12/09 completed Not Available Not Available Not Available Januvia 100 mg tablet Take 1 tablet every day by oral route. 02/20 completed Not Available Not Available Not Available Suprep Bowel Prep Kit 17.5 gram-3.13 gram-1.6 gram oral solution TAKE DIRECTED 12/16 completed Not Available Not Available Not Available Farxiga 10 mg tablet Take 1 tablet every day by oral route. 10/28 completed Not Available Not Available Not Available Farxiga 5 mg tablet Take 1 tablet every day by oral route. 10/27 completed Not Available Not Available Not Available Plenvu 140 gram-9 gram-5.2 gram powder packs Take as directed . CHUY DE JESUS: [id number] PCN: [id number] GROUP: [id number] ID: [id number] 2021 active finished Not Available Not Available Not Avai lable Breztri Aerospher e 160 mcg-9mcg- 4.8mcg/ac tuation HFA aerosol inhaler Inhale 2 puffs twice a day by inhalati on route. 2024 active Not Available Not Available Not Avai lable Vitals Date Recorded Body height Body mass index (BMI) Body weight Oxygen saturation Oxygen saturation in Arterial blood by Pulse oximetry Heart rate Systolic And Diastolic Provider Name and Address Organization Details Last Updated DateTime 5 166.37 cm 29.2 kg/m2 42051.4 4 g 95 % 95 % 72 /min 107/75 mm[Hg] Sarah Trejo [facility] 5 14:40:36 Social History Question Answer Notes LastModified by Organizat ion Details LastModified Time Tobacco Smoking Status Current Every Day Smoker Nohemy Ruelas [facility] 07/17/2016 09:26:44 What Is Your Level Of Caffeine Consumption? Moderate [email or web address] Information not available 07/17/2016 How Much Tobacco Do You Chew? None [email or web address] Information not available 12/09/2018 Marital Status Single [email or web address] Informatio n not available 07/17/2016 What Was The Date Of Your Most Recent Tobacco Screening? 05/02/2025 [email or web address] Information not available 05/02/2025 At What Age Did You Start Smoking Tobacco? 18 [email or web address] Information not available 02/24/2024 How Much Tobacco Do You Smoke? 1 PPD Information not available 02/22/2020 Has Tobacco Cessation Counseling Been Provided? Yes [email or web address] Information not available 05/30/2017 On What Date Was Tobacco Cessation Counseling Provided? 02/14/2025 [email or web address] Information not available 02/14/2025 How Many Years Have You Smoked Tobacco? 30 Information not available 02/22/2020 Sex: Male Functional Status Question Answer Note LastModified by Organizat ion Details LastModified Time Do you use any illicit or recreational drugs? No [email or web address] Information not available 11/13/2022 What is your level of alcohol consumption? None [email or web address] Information not available 08/11/2018 Do you or have you ever used smokeless tobacco? 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 Never used electronic cigarettes [email or web address] Information not available 02/22/2020 Mental Status None recorded. Family History Relationship Description Onset Age of this Age Resolved Age Notes LastModified by Organization Details LastModified Time Mother Rheumatoid arthritis [email or web address] Not available 2018 16:18:46 Medical History Condition Response Arthritis Y Past Encounters Encounter ID Performer Location Encounter Start Date Encounter Closed Date Diagnosis/Indication Diagnosis SNOMED-CT Code Diagnosis ICD10 Code Diagnosis IMO Codes Diagnosis Note [id number] CARLOS AMES MD PAIN MEDICINE [address] [place] [address] 05/02/2025 14:26:21 05/02/2025 16:23:31 Pain in right lower limb 178248426 M79.604 Pain in le ft lower limb 162093169 M79.605 Pain in right knee 08021 79256 47704 M25.561 Pain in left knee 610226 3040 23205 M25.562 Pain of ri ght ankle joint 2363895725 5783262 M25.571 Pain of le ft ankle joint 6049327087 5333967 M25.572 Abnormal gait 34058259 R 26.9 Long-term drug therapy 840371112 Z79.899 Health Concerns Section Related Observation LastModified by Organization Detai ls LastModified Time None Recorded Concern Status LastModified by Organization Details LastModified Time None Recorded Payers Encounter Date Sequence Insurance Name Policy Number Policy Martin Covered Member ID Martin Member ID Guarantor Name 05/02/2025 1 *SELF PAY* Andrei Robles Notes Date Note Type Note Provider Name and Address Organization Details Recorded Time 05/02/2025 text/html The pt complains of multiple joint pain. The pt states his knees and ankles hurt, today. He thinks it is due to his job-crawling around and to his gout-damaging the joints. 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 He states there is no stress. He did not have any new pain complaints.) (From ov on 11/03/24: The pt states the gout is acting up in his right elbow. He states since he is no longer prescribed the indomethacin, the gout does not go away very quickly. He has changed jobs. 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 (From ov on 08/30/24: The pt states his legs are hurting, today. He states the cold temperatures and climbing ladders hurt his legs. In addition, he states he has been having flares of his gout.) (From ov on 07/05/24: The pt did not have any new pain complaints. He states he had to work outside last week when the temps were in the single digits, but today, when the temps were in the 50's, he had to work inside.) (From ov on 05/06/24: The pt states this has been a difficult week at work, just working with the public. I told him I agree.) (From ov on 03/10/24: The size of the pt's lung mass has decreased since his last CT scan. It is going to f/u with a CT scan in one year.) (From ov on 01/07/24: The pt has seen pulmonary due to a lung mass. 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 He has gout and states his gout is doing well, but his ankles and knees are worn out from having so many gout attacks in the past and he does not know how long he can do his job.) (From ov on 01/16/22: The pt states he had an episode of gout this past weekend. He states he does not have his indomethacin to take since the pt states he was told it was discontinued due to elevated kidney function. He states he thinks the gout attacks are due to working so many hours-last week-80 hours.) The pt is not experiencing problems with bowels/bladder. The pt is sleeping 6 hours. The pt is working. He works in [employer]. The pt reports that he has not fallen since his last ov. The pt ambulates without an AD. The pt is alone at today s visit. Etoh-Denied. Tobacco-states he is no longer smoking. CBD-Denied. The pt's mother, Yuridia Robles, , December,. CARLOS AMES MD [facility] [place], [address], [facility] 05/02/2025 16:54:44
--- OUTSIDE RECORDS SUMMARY | 2025-05-14 09:39 | XMS_ITS | Encounter Summary ---
Author Organization [employer] ([place], [place], [place], [place]) Address [address] [place] [address] Care Team Providers Care Assistant Producer Name Role Phone Unavailable Primary Care Provider Unavailabl e Encounter Details Date Type Department Care Team (Late st Contact Info) Description 02/07/2021 Transcribed Document [facility] [place] [facility] [address] [place] [address] ProviderAntonette MD [address] [place] [address] Social History Tobacco Use Types Packs/Day Years Used Date Smoking Tobacco: Never Assessed Sex and Gender Information Value Date Recorded Sex Assigned at Not on file Legal Sex Male 4:32 PM CDT Gender Identity Not on file Sexual Orientation Not on file documented as of this encounter Miscellaneous Notes * Cerner Conversion Note - Historical ProviderMD - 02/07/2021 2:50 PM CDT Time Out Documentation Entered On: 02/07/2021 14:50 EDT Performed On: 02/07/2021 14:50 EDT by EZE ZAVALA RN Time Out Documentation Time Out Pause Time : 02/07/2021 14:48 EDT All Activity Suspended : Yes Team Verbally Confirms Information : Correct patient identity, Correct side and site are marked, Consent form is present and accurate, Agreement on the procedure to be done, Correct patient position, Relevant images/results properly labeled/appropriately displayed EZE ZAVALA RN - 02/07/2021 14:50 EDT Electronically signed by Branden [facility] Conversion Biomedical Electronics Technician Naener at 11/12/2022 11:32 AM CDT documented in this encounter Plan of Treatment Not on file documented as of this encounter Visit Diagnoses Not on filedocumented in this encounter
--- OUTSIDE RECORDS SUMMARY | 2025-05-14 09:39 | XMS_ITS | Encounter Summary ---
Author Organization [employer] ([place], [place], [place], [place]) Address [address] [place] [address] Care Team Providers Care Major Gifts Manager Name Role Phone Unavailable Primary Care Provider Unavailabl e Encounter Details Date Type Department Care Team (Late st Contact Info) Description 02/14/2021 Transcribed Document [facility] [place] [address] [place] [address] ProviderAntonette MD [address], [place] [id number] Social History Tobacco Use Types Packs/Day Years Used Date Smoking Tobacco: Never Assessed Sex and Gender Information Value Date Recorded Sex Assigned at Not on file Legal Sex Male 4:32 PM CDT Gender Identity Not on file Sexual Orientation Not on file documented as of this encounter Miscellaneous Notes * [employer]ner Conversion Note - Antonette Urbano MD - 02/14/2021 5:20 PM CDT DATE OF PROCEDURE: 02/07/2021 SURGEON: Juan Pablo Lemus Jr, MD PREOPERATIVE DIAGNOSES: Right shoulder impingement, AC joint arthropathy, biceps tendinopathy, and subacromial impingement with complex labral tear. POSTOPERATIVE DIAGNOSES: Right shoulder impingement, AC joint arthropathy, biceps tendinopathy, and subacromial impingement with complex labral tear. PROCEDURE PERFORMED: Right shoulder arthroscopy with limited debridement of labral tear, biceps tenotomy with double row arthroscopic rotator cuff repair, supraspinatus medium-size tear with acromioplasty and partial distal clavicle excision with undersurface resection of distal osteophyte off the AC joint. ANESTHESIA: General plus regional. COMPLICATIONS: None. BLOOD LOSS: Minimal. DESCRIPTION OF PROCEDURE: The patient was taken to the operating room, placed in supine position. After adequate general anesthesia with regional block, sterile prep and drape, time-out observed, IV antibiotics given. Right side up position with all bony prominences padded. 15 pounds in-line traction after obtaining general anesthesia was carried out. Posterior portal created after time-out, and sterile prep and drape in the usual fashion, administration of IV antibiotics. Arthroscope was placed in the glenohumeral joint. Anterior working portal was placed inferior to the biceps, lateral to the coracoid, a 7 mm disposable cannula was placed. We noted superior labral tear, which was debrided back to stable rim and extended to the posterior labrum, which was also debrided. The biceps showed a partial tear of about 50%, it was tenotomized and allowed to retract distally where it appeared to lodged in the groove. The full-thickness tear of the rotator cuff was noted, but the articular cartilage of the glenohumeral joint was otherwise intact. Subscapularis was intact and normal. We then placed instruments in the subacromial space, and then removed the bursa with the oscillating shaver from the lateral portal, removed soft tissue from the undersurface of the acromion and distal clavicle. Inferior osteophytes off the AC joint were removed with a motorized bur, as well as a type 2 acromion was converted to a flat acromion with acromioplasty using a cutting block technique. This allowed room for rotator cuff repair and also lessen the impingement. The cuff was mobilized and the attachment site of the tuberosity was debrided to bleeding bony bed with motorized bur. [place] was placed medially and the sutures passed through the cuff. They were tied down and then spanned over to a lateral anchor for double row fixation and good footprint fixation was noted. We then irrigated the shoulder joint, closed all portals with nylon suture. Sterile dressing, ice pack, and sling, and transferred the patient to recovery room in good condition. /[id number] MD SHANE Alvarado Jr/VALENTÍN / SHANE / MODL /[id number] documented in this encounter Plan of Treatment Not on file documented as of this encounter Visit Diagnoses Not on filedocumented in this encounter
--- OUTSIDE RECORDS SUMMARY | 2025-05-14 09:39 | XMS_ITS | Clinical Summary ---
Author Organization [employer] ([place], [place], [place], [place]) Address [address] [place] [address] Care Team Providers Care Information Technology Teacher Name Role Phone Unavailable Primary Care Provider Unavailabl e Social History Tobacco Use Types Packs/Day Years Used Date Smoking Tobacco: Never Assessed Sex and Gender Information Value Date Recorded Sex Assigned at Not on file Legal Sex Male 4:32 PM CDT Gender Identity Not on file Sexual Orientation Not on file Plan of Treatment Not on file
--- OUTSIDE RECORDS SUMMARY | 2025-05-14 09:39 | XMS_ITS | Encounter Summary ---
Author Organization [employer] ([place], [place], [place], [place]) Address [address] [place] [address] Care Team Providers Care Scene Shifter Name Role Phone Unavailable Primary Care Provider Unavailabl e Encounter Details Date Type Department Care Team (Late st Contact Info) Description 02/07/2021 Transcribed Document [facility] [place] Family Medicine [address] [place] [address] ProviderAntonette MD [address] [place] [address] Social History Tobacco Use Types Packs/Day Years Used Date Smoking Tobacco: Never Assessed Sex and Gender Information Value Date Recorded Sex Assigned at Not on file Legal Sex Male 4:32 PM CDT Gender Identity Not on file Sexual Orientation Not on file documented as of this encounter Miscellaneous Notes * Cerner Conversion Note - Antonette Urbano MD - 02/07/2021 2:50 PM CDT Peripheral Nerve Block Entered On: 02/07/2021 14:53 EDT Performed On: 02/07/2021 14:50 EDT by EZE ZAVALA RN Peripheral Nerve Block Peripheral Nerve Block End Date/Time : 02/07/2021 15:04 EDT EZE ZAVALA RN - 02/07/2021 15:07 EDT Peripheral Nerve Block Start Date/Time : 02/07/2021 14:50 EDT Verbally Confirm Pt, Site, and Procedure : Yes Time Out Pause Time : 02/07/2021 14:48 EDT Site Marked and Visible : Yes Site Preparation : Chlorhexidine (Hibiclens) Peripheral Nerve Block : Interscalene Laterality : Right Peripheral Nerve Block Performed by : MAYI MENDES MD Medication Delivery Method : Single Shot Peripheral Nerve Block Assisted by : JOSIAH WHITEHEAD RN Ultra sound used during insertion : Yes Nerve Block Activity, Patient Tolerance : Good Peripheral Nerve Block Comment : R INTERSCALENE NERVE BLOCK DONE ALONG WITH ON Q CATHETER PLACED AND SECURED WITH SKIN GLUE PER DR. LOZA REQUEST. EZE ZAVALA RN - 02/07/2021 14:50 EDT documented in this encounter Plan of Treatment Not on file documented as of this encounter Visit Diagnoses Not on filedocumented in this encounter
--- OUTSIDE RECORDS SUMMARY | 2025-05-14 09:39 | XMS_ITS | Referral Summary ---
Author Organization [employer] ([place], [place], [place], [place]) Address [address] [place] [address] Care Team Providers Care Enterprise Systems Engineer Name Role Phone Unavailable Primary Care Provider [...]
--- OUTSIDE RECORDS SUMMARY | 2025-05-14 09:39 | XMS_ITS | Encounter Summary ---
Author Organization [employer] ([place], [place], [place], [place]) Address [address] [place] [address] Care Team Providers Care Aircraft Machinist Name Role Phone Unavailable Primary Care Provider Unavailabl e Encounter Details Date Type Department Care Team (Late st Contact Info) Description 02/07/2021 Transcribed Document [facility] [place] Family Medicine [address] [place] [address] ProviderAntonette MD [address] [place], [place] [phone] Social History Tobacco Use Types Packs/Day Years Used Date Smoking Tobacco: Never Assessed Sex and Gender Information Value Date Recorded Sex Assigned at Not on file Legal Sex Male 4:32 PM CDT Gender Identity Not on file Sexual Orientation Not on file documented as of this encounter Miscellaneous Notes * Cerner Conversion Note - Historical ProviderMD - 02/07/2021 4:14 PM CDT Event Note Entered On: 02/07/2021 16:17 EDT Performed On: 02/07/2021 16:14 EDT by JOSIAH WHITEHEAD RN Event Note Event Date/Time : 02/07/2021 16:14 EDT Description of Event : Post block monitoring complete, patient awake , alert , oriented. Expressed anger that he has waited so long. Care handed off to Irais Echols, his pre block nurse. She discussed options with him. His right arm is numb and placed on pillow , apologized for his wait and allowed him to vent frustrations. JOSIAH WHITEHEAD RN - 02/07/2021 16:14 EDT Electronically signed by Branden [facility] Conversion Supervisor Heat Treating [place] at 11/12/2022 11:27 AM CDT documented in this encounter Plan of Treatment Not on file documented as of this encounter Visit Diagnoses Not on filedocumented in this encounter
--- OUTSIDE RECORDS SUMMARY | 2025-05-14 09:39 | XMS_ITS | Encounter Summary ---
Author Organization [employer] ([place], [place], [place], [place]) Address [address] [place] [address] Care Team Providers Care Systems Integration Analyst Name Role Phone Unavailable Primary Care Provider Unavailabl e Encounter Details Date Type Department Care Team (Late st Contact Info) Description 02/05/2019 Transcribed Document [facility] [place] Family Medicine [address] [place] [address] ProviderAntonette MD [address], [place] [id number] Social History Tobacco Use Types Packs/Day Years Used Date Smoking Tobacco: Never Assessed Sex and Gender Information Value Date Recorded Sex Assigned at Not on file Legal Sex Male 4:32 PM CDT Gender Identity Not on file Sexual Orientation Not on file documented as of this encounter Miscellaneous Notes * [employer]ner Conversion Note - Historical ProviderMD - 02/05/2019 12:25 PM CDT ED Discharge Entered On: 02/05/2019 12:25 EDT Performed On: 02/05/2019 12:25 EDT by YASH BATEMAN RN Discharge Process Patient Disposition : Discharge Personal Belongings With Patient : Yes Patient Education Completed : Yes Teaching Evaluation : Verbalizes understanding IV Discontinued : Not applicable Nursing Documentation Completed : Yes YASH BATEMAN RN - 02/05/2019 12:25 EDT ED Discharge Discharge To : Home with ambulatory/outpatient follow-up Mode Of Departure : Private vehicle Accompanied By : Unaccompanied Discharge Instructions Reviewed With, Opportunity For Questions Given : Patient Prescriptions Given to Patient : Electronically sent Number of Prescriptions Given : 1 YASH BATEMAN RN - 02/05/2019 12:25 EDT documented in this encounter Plan of Treatment Not on file documented as of this encounter Visit Diagnoses Not on filedocumented in this encounter
--- OUTSIDE RECORDS SUMMARY | 2025-05-14 09:40 | XMS_ITS | Data Portability ---
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 medrol dose jericho along with the keflex for inflammati on I would like for him to be off work x 2 days and return on Friday, unless this is not improved by friday, then he will call with further instructio kuldeep [id number] BAILEE RITTER APRN RHEUMATOL JUDE SB [address] [place] [address] 1 02/29/2020 08:32:34 02/29/2020 10:56:55 Cellulitis of lower limb 780967424 L03.119 medial tibia with red, warm, tender and swollen tissue suggestive of cellulitis /folliculi tis would recommend having the knee assessed by ID and with ortho; may need to have this lanced and assessed; not sure how long the infection has been there; painful to palp; withdraws; works on his knees; this is not in the joint, his gout is stable--th is is not a gout issue keflex has not worked for this infection discussed with Dr. Loredo and Dr. Loredo would like for him to have a referral to Dr. Gorman en for assessment of the infection and the tibia; he also would like an ID referral to assess for recurring infectious process; both referrals made; discussed with patient that he may need to have this opened up; he verbalizes an understand ing; we will make an effort to get his referrals made cm. [id number] CARLOS AMES MD PAIN MEDICINE CLOSED [address] [place] [address] 1 03/30/2020 14:01:28 03/30/2020 14:21:15 Pain in right lower limb 904701439 M79.604 Pain in le ft lower limb 068531085 M79.605 Pain in right knee 49449 05109 97717 M25.561 Pain in left knee 796813 8090 56437 M25.562 Pain of ri ght ankle joint 4430012755 3171618 M25.571 Pain of le ft ankle joint 1633920974 1910735 M25.572 Abnormal gait 00505340 R 26.9 Long-term drug therapy 244074235 Z79.301 [id number] CARLOS AMES MD [facility] CLOSED [address] [place] [address]-140 1 06/01/2020 13:39:17 06/01/2020 13:55:41 Pain in right lower limb 208712361 M79.604 Pain in le ft lower limb 556354160 M79.605 Pain in right knee 87874 00713 61423 M25.561 Pain in left knee 551783 0744 96804 M25.562 Pain of ri ght ankle joint 7985947588 7175097 M25.571 Pain of le ft ankle joint 3157062009 9760393 M25.572 Abnormal gait 36878186 R 26.9 Long-term drug therapy 003302337 Z79.697 [id number] CARLOS AMES MD [facility]INE CLOSED [address] [place] [address]87-544 1 07/31/2020 13:05:23 07/31/2020 13:55:00 Pain in right lower limb 783660770 M79.604 Pain in le ft lower limb 216506252 M79.605 Pain in right knee 88561 16111 01212 M25.561 Pain in left knee 400397 0149 63022 M25.562 Pain of ri ght ankle joint 4842245988 6564298 M25.571 Pain of le ft ankle joint 0980800097 9634226 M25.572 Abnormal gait 47908470 R 26.9 Long-term drug therapy 549831204 Z79.237 [id number] ALFREDO HOPPER MD [facility] [address] [place] [address]03[address]167 3 09/08/2020 11:23:33 09/08/2020 12:00:18 Essential hypertension 22937849 I10 Osteoarthritis 676972334 M19.90 Gout 47046883 M10.9 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 without complication 091143964 E11.9 [id number] CARLOS AMES MD PAIN [facility]ICINE CLOSED [address] [place] [address]84-278 1 09/28/2020 15:06:27 09/29/2020 12:07:30 Pain in right lower limb 244065188 M79.604 Pain in le ft lower limb 390362291 M79.605 Pain in right knee 56235 49580 93876 M25.561 Pain in left knee 039693 3036 89861 M25.562 Pain of ri ght ankle joint 9065878878 1154763 M25.571 Pain of le ft ankle joint 9046674587 5987522 M25.572 Abnormal gait 10268781 R 26.9 Long-term drug therapy 220735161 Z79.538 [id number] ALFREDO HOPPER MD [facility] [address] [place] [address] 11/09/2020 15:32:16 11/09/2020 16:02:27 Impingement syndrome of right shoulder region 9061978419 53734 M75.41 [id number] CARLOS AMES MD PAIN MEDICINE CLOSED [address] [place] [address] 1 11/29/2020 14:50:33 11/29/2020 15:07:35 Pain in right lower limb 428575746 M79.604 Pain in le ft lower limb 016467780 M79.605 Pain in right knee 27516 40913 38436 M25.561 Pain in left knee 558161 0950 68275 M25.562 Pain of ri ght ankle joint 0947341020 6179067 M25.571 Pain of le ft ankle joint 3598492207 7967289 M25.572 Abnormal gait 08374889 R 26.9 Long-term drug therapy 673497865 Z79.919 [id number] CARLOS AMES MD PAIN MEDICINE CLOSED [address] [place] [address] 6[address]08-751 1 01/24/2021 09:37:34 01/24/2021 09:48:34 Pain in right lower limb 584952141 M79.604 Pain in le ft lower limb 865291506 M79.605 Pain in right knee 00327 09079 33695 M25.561 Pain in left knee 611099 0728 34339 M25.562 Pain of ri ght ankle joint 5806037191 3733977 M25.571 Pain of le ft ankle joint 6488190518 6640376 M25.572 Abnormal gait 25206877 R 26.9 Long-term drug therapy 276305837 Z79.670 [id number] ALFREDO HOPPER MD [facility] [address] [place] [address] 8[address]19[address] 3 01/24/2021 10:31:08 01/24/2021 11:27:08 Essential hypertension 06300976 I10 Rupture of rotator cuff of right shoulder 1122100179 8971956 M75.101 Prediabetes 111501430 R7 3.03 Gouty arthropathy 478789 008 M10.09 [id number] CARLOS AMES MD PAIN [facility]INE CLOSED [address] [place] [address] 6[address]41-693 1 03/28/2021 15:07:28 03/28/2021 15:59:54 Pain in right lower limb 347888675 M79.604 Pain in le ft lower limb 911741554 M79.605 Pain in right knee 26722 21242 85977 M25.561 Pain in left knee 560763 2914 29280 M25.562 Pain of ri ght ankle joint 2003485965 3410540 M25.571 Pain of le ft ankle joint 0076784479 6715454 M25.572 Abnormal gait 99178727 R 26.9 Long-term drug therapy 453818217 Z79.228 [id number] ALFREDO HOPPER MD [address] [address] 3 04/19/2021 13:14:17 04/19/2021 15:18:08 Essential hypertension 77582026 I10 Chronic ki dney disease 279166820 N18.9 Gouty arthropathy 088420 008 M10.09 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 without complication 873194417 E11.9 [id number] CARLOS AMES MD PAIN MEDICINE CLOSED [address] [place] [address] 03844-185 1 05/28/2021 15:25:27 05/28/2021 16:22:48 Pain in right lower limb 211268632 M79.604 Pain in le ft lower limb 057723128 M79.605 Pain in right knee 72935 94305 44690 M25.561 Pain in left knee 692421 3922 30539 M25.562 Pain of ri ght ankle joint 6542460177 7305409 M25.571 Pain of le ft ankle joint 1515989241 6681489 M25.572 Abnormal gait 64975590 R 26.9 Long-term drug therapy 742054946 Z79.638 [id number] CARLOS AMES MD PAIN MEDICINE CLOSED [address] [place] [address] 1 07/16/2021 15:34:56 07/16/2021 15:56:52 Pain in right lower limb 805368913 M79.604 Pain in le ft lower limb 065799765 M79.605 Pain in right knee 61780 12785 89705 M25.561 Pain in left knee 901480 1105 48421 M25.562 Pain of ri ght ankle joint 2177272331 9049793 M25.571 Pain of le ft ankle joint 5069707258 4828733 M25.572 Abnormal gait 54149849 R 26.9 Long-term drug therapy 793268351 Z79.134 [id number] CARLOS AMES MD [facility]IN [facility]ICINE CLOSED [address] [place] [address]09[address]731 1 09/26/2021 15:22:33 09/26/2021 16:22:06 Pain in right lower limb 477694084 M79.604 Pain in le ft lower limb 292687447 M79.605 Pain in right knee 15546 40448 87015 M25.561 Pain in left knee 234001 6533 84753 M25.562 Pain of ri ght ankle joint 0425024516 4758193 M25.571 Pain of le ft ankle joint 0782937397 6830867 M25.572 Abnormal gait 78726771 R 26.9 Long-term drug therapy 538143409 Z79.872 [id number] ALFREDO HOPPER MD [address] [address] 3 11/07/2021 13:59:34 11/07/2021 14:34:53 Gouty arthropathy 832888599 M10.09 Essential hypertension 43403862 I10 Chronic ki dney disease 707360999 N18.9 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 without complication 924867813 E11.9 Pruritic rash 97844181 L 28.2 [id number] CARLOS AMES MD PAIN [facility]ICINE CLOSED [address] [place] [address] 71791-228 1 11/20/2021 15:05:09 11/20/2021 15:27:01 Pain in right lower limb 197301665 M79.604 Pain in le ft lower limb 337567527 M79.605 Pain in right knee 80627 07388 73572 M25.561 Pain in left knee 927028 5336 88781 M25.562 Pain of ri ght ankle joint 9169790362 4622010 M25.571 Pain of le ft ankle joint 7242569446 9590196 M25.572 Abnormal gait 44808343 R 26.9 Long-term drug therapy 442919694 Z79.005 [id number] CARLOS AMES MD PAIN [facility]ICINE CLOSED [address] [place] [address] 1 01/16/2022 15:05:54 01/16/2022 16:05:24 Pain in right lower limb 092067967 M79.604 Pain in le ft lower limb 318634647 M79.605 Pain in right knee 80360 86083 25317 M25.561 Pain in left knee 293827 9223 20957 M25.562 Pain of ri ght ankle joint 5404604858 2052381 M25.571 Pain of le ft ankle joint 7887496724 7885113 M25.572 Abnormal gait 44311117 R 26.9 Long-term drug therapy 758640346 Z79.899 [id number] ALFREDO HOPPER MD [facility] [address] [place] [address] 3 02/21/2022 14:21:05 02/21/2022 15:01:51 Chest pain 02893350 R07.9 Essential hypertension 20732800 I10 Uncontroll ed type 2 diabetes mellitus 457805147 E11.65 [id number] ARNOLDO ARSHAD APRN CARDIOLOG Y [address] [place] [address] 02/28/2022 13:21:03 03/01/2022 14:03:15 Hypertensive disorder 36281753 I10 02/28/2022: 92/58 s tates that he has been working outside on top of a roof and sweating a lot. Could be related to dehydratio n. He has taken his lisinopril /HCTZ today. Asymptomat ic. Dyspnea on exertion 6084 5006 R06.09 Arrange for echocardio gram Chronic ongoing tobacco use. Arrange for pulmonary medicine referral for PFTs and further evaluation . Patient is concerned about an hardened area of induration located in his mid anterior thorax. It feels like an immobile bony prominence . Exercise-i nduced angina 782132083 I20.8 Arrange for Myoview ECG in the office today continues to reveal sinus rhythm with no ST segment abnormalit ies. Incomplete right bundle branch block present in inferior leads. QT/QTc: 345/388 ms. OH: 33 ms. QRS duration: 86 ms. Overweight 718775934 E66 .3 02/28/2022: 27.6 Diet; I counseled patient on maintainin g a less than 2 g sodium restrictio n diet plan. he is also agreeable to not add salt additional ly to her food. We discussed weight reduction as well during our consultati on today. [id number] CARLOS AMES MD PAIN MEDICINE CLOSED [address] [place] [address]245[address]741 1 03/12/2022 15:27:05 03/12/2022 16:09:29 Pain in right lower limb 099591485 M79.604 Pain in le ft lower limb 344713358 M79.605 Pain in right knee 45211 35906 67153 M25.561 Pain in left knee 079529 1089 22744 M25.562 Pain of ri ght ankle joint 6173235977 6318773 M25.571 Pain of le ft ankle joint 4767897084 7555503 M25.572 Abnormal gait 81578216 R 26.9 Long-term drug therapy 899809154 Z79.899 [id number] RASHMI FANG MD [facility] [address] [place] [address] 03/14/2022 07:42:18 03/14/2022 12:51:03 [id number] RASHMI FANG MD [facility] [address] [place] [address] 5 03/14/2022 08:14:15 03/18/2022 09:08:59 Dyspnea on exertion 30059857 R06.09 [id number] CARLOS AMES MD PAIN MEDICINE CLOSED [address] [place] [address] 96267-255 1 05/07/2022 15:12:23 05/07/2022 15:44:44 Pain in right lower limb 035656772 M79.604 Pain in le ft lower limb 589004896 M79.605 Pain in right knee 50064 76600 12436 M25.561 Pain in left knee 284649 7350 25930 M25.562 Pain of ri ght ankle joint 2940606748 3272066 M25.571 Pain of le ft ankle joint 5948820344 8943025 M25.572 Abnormal gait 34046067 R 26.9 Long-term drug therapy 183827428 Z79.899 [id number] ALFREDO HOPPER MD [facility] [address] [place] [address] 05/15/2022 13:59:10 05/15/2022 14:55:05 Essential hypertension 93193921 I10 Gout 48061269 M10.9 Screening for malignant neoplasm of colon 232105751 Z12.11 Adult heal th examination 968202351 Z00.00 Uncontroll ed type 2 diabetes mellitus 231677991 E11.65 Nicotine dependence 5629 4008 F17.200 [id number] CARLOS AMES MD PAIN MEDICINE CLOSED [address] [place] [address] 1 07/17/2022 14:54:52 07/17/2022 15:27:11 Pain in right lower limb 752442093 M79.604 Pain in le ft lower limb 082797564 M79.605 Pain in right knee 88138 49704 67273 M25.561 Pain in left knee 733800 2035 30018 M25.562 Pain of ri ght ankle joint 1851936657 2895949 M25.571 Pain of le ft ankle joint 7392229376 3338552 M25.572 Abnormal gait 50207291 R 26.9 Long-term drug therapy 978257295 Z79.899 [id number] ALFREDO HOPPER MD [address] [address] 3 08/15/2022 10:57:34 08/15/2022 11:48:32 [facility] 034310671 J45.909 [id number] CARLOS AMES MD PAIN MEDICINE CLOSED [address] [place] [address] 1 09/18/2022 15:17:24 09/18/2022 15:33:24 Pain in right lower limb 964296593 M79.604 Pain in le ft lower limb 249511670 M79.605 Pain in right knee 73461 93756 04474 M25.561 Pain in left knee 289798 9347 47625 M25.562 Pain of ri ght ankle joint 2843913056 3573265 M25.571 Pain of le ft ankle joint 1461259329 8665432 M25.572 Abnormal gait 36106135 R 26.9 Long-term drug therapy 525435603 Z79.899 [id number] ALFREDO HOPPER MD [facility] [address] [place] [address] 11/12/2022 15:27:23 11/12/2022 15:52:21 Gout 28260875 M10.9 Uncontroll ed type 2 diabetes mellitus 808583682 E11.65 Essential hypertension 24734608 I10 Adult heal th examination 434290891 Z00.00 Nicotine dependence 5629 4008 F17.200 Asthmatic bronchitis 405 092380 J45.909 [id number] CARLOS AMES MD PAIN MEDICINE CLOSED [address] [place] [address] 1 11/13/2022 15:26:41 11/13/2022 15:47:07 Pain in right lower limb 331129391 M79.604 Pain in le ft lower limb 516487610 M79.605 Pain in right knee 00326 27787 51670 M25.561 Pain in left knee 079996 3884 96203 M25.562 Pain of ri ght ankle joint 6144632469 0534265 M25.571 Pain of le ft ankle joint 3127132284 5511803 M25.572 Abnormal gait 01018489 R 26.9 Long-term drug therapy 804164685 Z79.899 [id number] CARLOS AMES MD PAIN MEDICINE CLOSED [address] [place] [address] 1 01/15/2023 15:16:32 01/15/2023 16:08:58 Pain in right lower limb 160208790 M79.604 Pain in le ft lower limb 393377880 M79.605 Pain in right knee 07577 79463 38529 M25.561 Pain in left knee 066023 2473 92813 M25.562 Pain of ri ght ankle joint 9541760660 7584443 M25.571 Pain of le ft ankle joint 3710191486 3857412 M25.572 Abnormal gait 60326996 R 26.9 Long-term drug therapy 396299536 Z79.899 [id number] CARLOS AMES MD PAIN MEDICINE CLOSED [address] [place] [address] 1 03/12/2023 15:09:15 03/12/2023 16:21:00 Pain in right lower limb 750635043 M79.604 Pain in le ft lower limb 040890372 M79.605 Pain in right knee 52879 29169 53690 M25.561 Pain in left knee 525224 1573 83668 M25.562 Pain of ri ght ankle joint 0995639057 0784566 M25.571 Pain of le ft ankle joint 5168179943 1635165 M25.572 Abnormal gait 50313904 R 26.9 Long-term drug therapy 082095166 Z79.899 [id number] CARLOS AMES MD PAIN [facility]ICINE CLOSED [address] [place] [address] 1 05/13/2023 15:04:09 05/13/2023 15:48:39 Pain in right lower limb 777181832 M79.604 We discussed the fact that pharmacies are having difficulty getting in medication . Given the supply chain difficulti es, the pt is aware we are sending medication in to one pharmacy only. Pain in le ft lower limb 845480712 M79.605 Pain in right knee 83857 99746 78958 M25.561 Pain in left knee 911784 5863 66377 M25.562 Pain of ri ght ankle joint 4945561240 9663924 M25.571 Pain of le ft ankle joint 3632978910 3395031 M25.572 Abnormal gait 68185681 R 26.9 Long-term drug therapy 636226708 Z79.899 [id number] ALFREDO HOPPER MD [facility] [address] [place] [address] 3 05/14/2023 14:27:57 05/14/2023 15:03:20 Gout 02847109 M10.9 Asthmatic bronchitis 405 936179 J45.909 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 without complication 990390969 E11.9 Essential hypertension 90458557 I10 [id number] CARLOS AMES MD PAIN MEDICINE CLOSED [address] [place] [address] 1 07/14/2023 14:46:11 07/14/2023 15:29:31 Pain in right lower limb 202993620 M79.604 Pain in le ft lower limb 263754984 M79.605 Pain in right knee 63509 58461 08696 M25.561 Pain in left knee 123319 8636 69165 M25.562 Pain of ri ght ankle joint 0256118072 6638155 M25.571 Pain of le ft ankle joint 6081951003 9376944 M25.572 Abnormal gait 75945976 R 26.9 Long-term drug therapy 271995716 Z79.899 [id number] CARLOS AMES MD PAIN MEDICINE CLOSED [address] [place] [address] 1 09/10/2023 14:39:22 09/10/2023 15:23:31 Pain in right lower limb 973852181 M79.604 Pain in le ft lower limb 199446584 M79.605 Pain in right knee 83479 35279 57633 M25.561 Pain in left knee 453439 5499 72794 M25.562 Pain of ri ght ankle joint 7530200003 6747554 M25.571 Pain of le ft ankle joint 9999510372 5813182 M25.572 Abnormal gait 18189746 R 26.9 Long-term drug therapy 283025108 Z79.899 [id number] ALFREDO HOPPER MD [address] [address] 10/28/2023 11:00:09 10/28/2023 11:32:37 Chest pain 47230426 R07.9 Essential hypertension 08889548 I10 Nicotine dependence 5629 4008 F17.200 Acute bronchitis 0101729 2 J20.9 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 without complication 635134736 E11.9 Ex-smoker 1187656 Z87.89 1 [id number] CARLOS AMES MD [facility] CLOSED [address] [place] [address] 1 11/12/2023 14:59:50 11/12/2023 16:08:10 Pain in right lower limb 199900523 M79.604 Pain in le ft lower limb 158086766 M79.605 Pain in right knee 82643 91676 85122 M25.561 Pain in left knee 882957 8676 74467 M25.562 Pain of ri ght ankle joint 5220729531 0114605 M25.571 Pain of le ft ankle joint 2565942327 4168405 M25.572 Abnormal gait 01031969 R 26.9 Long-term drug therapy 852654793 Z79.899 [id number] MARJ VELAZCO MD PULMONARY [address] [facility], [address] [place] [address] 12/12/2023 07:57:35 12/12/2023 12:25:40 Lung mass 244482137 R91.8 He has a right upper lobe mass. This is suspicious it is spiculated PET CT scan however was indetermin ate. There was low PET avidity with a low SUV. He clearly has significan t risk factors. I have discussed several options with him including the benefit and risks of proceeding with a CT-guided needle biopsy of the nodule. We will proceed with a follow-up CT scan in January 2024 to evaluate the evolution or lack thereof. If there is any persistenc e or increase in the size we will proceed with a CT-guided needle biopsy I have discussed this with him in detail he verbalizes full understand ing. Chronic ob structive pulmonary disease 80395843 J44.9 He has evidence of emphysema on his CT of the chest he clearly has risk factors for COPD. He does not have a formal diagnosis. I will request for a pulmonary function test on his return. I also indicated to him that if this lung nodule is malignant and there is no evidence of any secondary is a metastasis he may benefit from lung resection if his pulmonary function test is normal. He will return to see me shortly after the follow-up CT scan. Tobacco de pendence syndrome 98899862 F17.200 I have strongly advised him on smoking cessation. He is not ready to quit at this time. He has close 50-pack-ye ar history of smoking he has a suspicious right apex nodule and features of emphysema/ COPD on his CT of the lungs we will perform a PFT as indicated above an LDCT scan in October 2023 revealed the suspicious right apical mass. [id number] CARLOS AMES MD PA[facility] CLOSED [address] [place] [address] 01/07/2024 14:53:45 01/07/2024 15:19:19 Pain in right lower limb 803034940 M79.604 Pain in le ft lower limb 488001390 M79.605 Pain in right knee 20239 84170 42860 M25.561 Pain in left knee 348920 4412 09955 M25.562 Pain of ri ght ankle joint 5936256615 1747542 M25.571 Pain of le ft ankle joint 1733232097 8677143 M25.572 Abnormal gait 73460716 R 26.9 Long-term drug therapy 990853048 Z79.899 [id number] MARJ VELAZCO MD PULMONARY [address] [facility], [address] [place] [address] 02/24/2024 09:25:52 02/25/2024 07:45:08 Chronic obstructive pulmonary disease 59812683 J44.9 He has evidence of emphysema on his CT of the chest he clearly has risk factors for COPD.He had a pulmonary function test today. FEV1 FVC ratio is 65. FEV1 67% of predicted he had a 9% improvemen t to 77%. DLCO was reduced at 62% with a corrected DLCO of 74%. There was no air trapping.1 . He will benefit from long-actin g bronchodil ators. I will start him on Breztri 2 puffs inhaled twice daily I have reviewed correct inhaler technique with him including rinsing his mouth after each use. We watched the video on correct Aerosphere inhaler use he will use it with a spacer2. He will also have as needed albuterol I described that this is a rescue inhaler. Lung mass 783213976 R91. 8 He has a right upper lobe mass. This is suspicious it is spiculated PET CT scan however was indetermin ate. There was low PET avidity with a low SUV. He clearly has significan t risk factors. I have discussed several options with him including the benefit and risks of proceeding with a CT-guided needle biopsy of the nodule. We decided to proceed with a follow-up CT scan today.CT scan today shows significan t improvemen t in the size of the nodule. We will follow-up with a CT of the chest in 1 year. Tobacco de pendence syndrome 21598291 F17.200 I have strongly advised him on smoking cessation. He is not ready to quit at this time. He has close 50-pack-ye ar history of smoking. Follow-up CT scan of the right upper lobe mass shows a slight decrease from 1.9 to 1.4 cm making this less likely to be malignancy .He will have an LDCT scan in 1 yearWe discussed different smoking cessation techniques and but he is not ready to quit at this time. [id number] CARLOS AMES MD PAIN MEDICINE CLOSED [address] [place], [place] [address] 03/10/2024 14:50:53 03/10/2024 16:05:00 Pain in right lower limb 472330910 M79.604 Pain in le ft lower limb 210851629 M79.605 Pain in right knee 10031 19616 97421 M25.561 Pain in left knee 948067 4440 32347 M25.562 Pain of ri ght ankle joint 0073683675 5185850 M25.571 Pain of le ft ankle joint 7740738316 1949269 M25.572 Abnormal gait 07950919 R 26.9 Long-term drug therapy 459004859 Z79.899 [id number] ALFREDO HOPPER MD [facility] [address] [place] [address] 04/27/2024 15:33:46 04/27/2024 16:05:37 Type 2 diabetes mellitus without complication 335485074 E11.9 Essential hypertension 84572107 I10 Chronic ob structive pulmonary disease 42206373 J44.9 Screening for malignant neoplasm of prostate 233597711 Z12.5 Gout 11416245 M10.9 [id number] CARLOS AMES MD PAIN [facility]IC[facility] CLOSED [address] [place] [address] 05/06/2024 14:34:49 05/06/2024 15:17:22 Pain in right lower limb [id number] M79.604 Pain in le ft lower limb 378476355 M79.605 Pain in right knee 52154 95725 75942 M25.561 Pain in left knee 536158 9966 58174 M25.562 Pain of ri ght ankle joint 8918340470 4796724 M25.571 Pain of le ft ankle joint 7966472471 7204446 M25.572 Abnormal gait 80193924 R 26.9 Long-term drug therapy 313330967 Z79.899 [id number] MARJ VELAZCO MD PULMONARY [address] [facility], [address] [place] [address] 07/09/2024 15:08:29 07/12/2024 09:52:59 Asthmatic bronchitis 489961189 J45.909 Chronic ob structive pulmonary disease 10601452 J44.9 He has evidence of emphysema on his CT of the chest he clearly has risk factors for COPD.He had a pulmonary function test today. FEV1 FVC ratio is 65. FEV1 67% of predicted he had a 9% improvemen t to 77%. DLCO was reduced at 62% with a corrected DLCO of 74%. There was no air trapping. This is consistent with mild COPD with close to an asthma overlap.1. He is currently on Breztri 2 puffs inhaled twice daily he reports significan t improvemen t I have again reviewed correct inhaler technique with him including rinsing his mouth after each use.2. He will continue on as needed albuterol. 3. I have advised him on age-approp riate and recommende d vaccinatio n he does not want to take any vaccines. He indicated that his brother got the COVID-vacc ine and developed pericardit is as a result. Nicotine dependence 5629 4008 F17.200 He continues to smoke up to a pack of cigarettes a day I have strongly advised him on smoking cessation. He has a more than 40 pack-year history of smoking. Solitary n odule of lung 605464949 R91.1 He has a right upper lobe mass please see below there was a decrease in the size of the mass from the prior scan we will continue with surveillan ce CT scan as indicated below. Lung mass 034287218 R91. 8 He has a right upper lobe mass. This was suspicious it is spiculated PET CT scan however was indetermin ate. There was low PET avidity with a low SUV. He clearly has significan t risk factors. I have discussed several options with him including the benefit and risks of proceeding with a CT-guided needle biopsy of the nodule. We decided to proceed with a follow-up CT scan during his last visit which revealed significan t improvemen t in the size of the nodule. We will follow-up with a CT in 6 months . This will be in January 2025. [id number] CARLOS AMES MD PAIN MEDICINE CLOSED [address] [place] [address] 07/05/2024 14:24:38 07/05/2024 15:22:08 Pain in right lower limb 179556451 M79.604 Pain in le ft lower limb 845861944 M79.605 Pain in right knee 84713 88947 49098 M25.561 Pain in left knee 827151 5089 69967 M25.562 Pain of ri ght ankle joint 7732394190 8921565 M25.571 Pain of le ft ankle joint 2034705759 3621477 M25.572 Abnormal gait 83502658 R 26.9 Long-term drug therapy 634409000 Z79.899 [id number] ALFRDEO HOPPER MD [place] [id number] 08/16/2024 11:59:17 08/16/2024 13:28:47 [id number] CARLOS AMES MD PAIN MEDICINE CLOSED [address] [place] [address] 08/30/2024 14:38:36 08/30/2024 15:17:32 Pain in right lower limb 813124475 M79.604 Pain in le ft lower limb 554354746 M79.605 Pain in right knee 83026 99370 60784 M25.561 Pain in left knee 263862 1797 14563 M25.562 Pain of ri ght ankle joint 7914570928 6486793 M25.571 Pain of le ft ankle joint 4011492640 1487645 M25.572 Abnormal gait 06351108 R 26.9 Long-term drug therapy 320715386 Z79.899 [id number] CARLOS AMES MD PAIN MEDICINE CLOSED [address] [place] [address] 11/03/2024 15:07:10 11/03/2024 15:24:35 Pain in right lower limb 463070636 M79.604 Pain in le ft lower limb 773912921 M79.605 Pain in right knee 10389 14408 96760 M25.561 Pain in left knee 119564 6085 26550 M25.562 Pain of ri ght ankle joint 9602645190 3421274 M25.571 Pain of le ft ankle joint 8800504161 6983490 M25.572 Abnormal gait 44949679 R 26.9 Long-term drug therapy 763789849 Z79.899 [id number] CARLOS AMES MD PAIN MEDICINE [address] [place] [address] [place], [place] [address] 01/05/2025 13:29:38 01/05/2025 14:18:19 Pain in right lower limb 771476905 M79.604 Pain in le ft lower limb 668814886 M79.605 Pain in right knee 83446 03344 26575 M25.561 Pain in left knee 267290 9036 65314 M25.562 Pain of ri ght ankle joint 2915213335 6412125 M25.571 Pain of le ft ankle joint 8430045123 8596605 M25.572 Abnormal gait 03313227 R 26.9 Long-term drug therapy 924942036 Z79.899 [id number] ALFREDO HOPPER MD [address] [address] 02/14/2025 15:15:51 02/14/2025 15:57:32 Essential hypertension 95909746 I10 19186 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 80436143 E11.9 32027787 Moderate c hronic obstructive pulmonary disease 206903144 J44.9 054820 Gout 58389286 M10.9 1154156 Acute cont act dermatitis 663906410 L25.9 364 [id number] CARLOS AMES MD PAIN MEDICINE [address] [place], [place] [address] 02/23/2025 14:16:21 02/23/2025 14:59:04 Pain in right lower limb 885611414 M79.604 Pain in le ft lower limb 207378419 M79.605 Pain in right knee 97718 88339 43275 M25.561 Pain in left knee 066392 4328 93532 M25.562 Pain of ri ght ankle joint 1489033949 5187050 M25.571 Pain of le ft ankle joint 6138398431 5477661 M25.572 Abnormal gait 85275722 R 26.9 Long-term drug therapy 515162017 Z79.899 [id number] CARLOS AMES MD PAIN MEDICINE [address] [place] [address] 05/02/2025 14:26:21 05/02/2025 16:23:31 Pain in right lower limb 681358400 M79.604 Pain in le ft lower limb 590787734 M79.605 Pain in right knee 20994 38559 45518 M25.561 Pain in left knee 249409 0145 67154 M25.562 Pain of ri ght ankle joint 8211032764 9278153 M25.571 Pain of le ft ankle joint 0030653723 1608637 M25.572 Abnormal gait 86192672 R 26.9 Long-term drug therapy 820532783 Z79.899 Health Concerns Section Related Observation LastModified by Organization Detai ls LastModified Time None Recorded Concern Status LastModified by Organization Details LastModified Time None Recorded Advance Directives Directive None Recorded Payers Insurance Date Sequence Insurance Name Policy Number Policy Martin Covered Member ID Martin Member ID Guarantor Name 11/01/2024 1 [place] [id number] Luis Robles [id number] Luis Robles 11/03/2024 1 *SELF PAY* nAdrei rk A Travis 05/12/2023 1 [place] [id number] Luis Robles [id number] Luis A Travis 05/22/2023 1 [employer] [id number] Luis A Travis [id number] Luis Robles 09/10/2023 1 *SELF PAY* Andrei rk A Travis 05/17/2023 GENERIC INSURANCE - MOVED-HOLD Luis A King Luis Robles Notes Date Note Type Note Provider Name and Address Organization Details Recorded Time 11/03/2024 text/html The pt complains of multiple joint pain. The pt states the gout is acting [...] mass. 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 He works in HVAC. The pt reports that he has not fallen since his last ov. The pt ambulates without an AD. The pt is alone at today s visit. Etoh-Denied. Tobacco-states he is no longer smoking. CBD-Denied. The pt's mother, Yuridia Robles, , December,. CARLOS AMES MD [address] [place] [address], [phone], [facility] 11/03/2024 16:32:29 01/05/2025 text/html The pt complains of multiple joint pain. The pt is enjoying working with his nephew. He states there is no stress. He did not have any new pain complaints. (From ov on 11/03/24: The pt states [...] mass. 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 He works in [employer]. The pt reports that he has not fallen since his last ov. The pt ambulates without an AD. The pt is alone at today s visit. Etoh-Denied. Tobacco-states he is no longer smoking. CBD-Denied. The pt's mother, Yuridia Robles, , December,. CARLOS AMES MD [address] [place] [address], [phone], [facility] 01/05/2025 16:42:08 02/14/2025 text/html ROS as noted in the HPI Luis in for med check/review.Lost his job last August. No money coming in. He request to keep labs at a minimum given self-pay.He seems a little depressed but he declines I asked twice. No crying, irritability, or feelings of self-harm. Sleeping okay.Hypertension n o self BP checks.NIDDM l ast A1c 6.8. States been compliant with meds. Not doing much p retty sedentary. He feels his diet is about the same. No sugary drinks. Drinks mostly water. Nocturia 1X.COPD b reathing about the same. Unfortunately still smoking e ncouraged cessation. No change in intermittent cough. Has known right lung mass l ast scan showed decrease in size. Has follow-up CT scan scheduled by pulmonary along with pulmonary office visit follow-up next month e ncouraged to keep.Gout n o flares.Recent contact dermatitis forearms-has been in crawl spaces. Mild itching. No OTC topicals. No other skin involvement.He denies headaches, dizziness, chest pain, urinary/bowel changes, or edema. ALFREDO HOPPER MD [address] [place] [address], [phone], [facility] 02/15/2025 07:06:27 02/23/2025 text/html The pt complains of multiple joint pain. The pt did not have any new pain complaints, today. He states people who have their ac out, are mad and hot, so he is dealing with them since his nephew has built up a good business. (From ov on 01/05/25: The pt is [...] mass. 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 He works in [employer]. The pt reports that he has not fallen since his last ov. The pt ambulates without an AD. The pt is alone at today s visit. Etoh-Denied. Tobacco-states he is no longer smoking. CBD-Denied. The pt's mother, Yuridia Robles, , December,. CARLOS AMES MD [address] [place] [address], [phone], [facility] 02/23/2025 15:47:18 05/02/2025 text/html The pt complains of multiple [...] mass. 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 He works in [employer]. The pt reports that he has not fallen since his last ov. The pt ambulates without an AD. The pt is alone at today s visit. Etoh-Denied. Tobacco-states he is no longer smoking. CBD-Denied. The pt's mother, Yuridia Robles, , December,. CARLOS AMES MD [facility] [place], [phone], [facility] 05/02/2025 16:54:44
[2025-05-14 09:41] LABS: Bacteria,Urine Trace /lpf
--- NOTE | 2025-05-14 09:47 | CT_ITS ---
PROCEDURE INFORMATION: Exam: CT Abdomen And Pelvis With Contrast Exam date and time: 05/14/2025 10:36 AM Age: 60 years old Clinical indication: Abdominal pain; Additional info: Right sided abd/flank pain x 5 days TECHNIQUE: Imaging protocol: Computed tomography of the abdomen and pelvis with contrast. 3D rendering (Not supervised by radiologist): MIP and/or 3D reconstructed images were created by the technologist. Radiation optimization: All CT scans at this facility use at least one of these dose optimization techniques: automated exposure control; mA and/or kV adjustment per patient size (includes targeted exams where dose is matched to clinical indication); or iterative reconstruction. Contrast material: ISOVUE; Contrast volume: 70 ml; Contrast route: IV; COMPARISON: CT ANGIO CHEST PE PROTOCOL 05/14/2025 10:36 AM FINDINGS: Lungs: Mild atelectasis in the left lung base. Coronary arteries: Coronary artery calcifications are noted. Liver: Normal. No mass. Gallbladder and biliary ducts: A calcified gallstone is seen in the gallbladder. Pancreas: Normal. No ductal dilation. Spleen: Normal. No splenomegaly. Adrenal glands: Normal. No mass. Kidneys and ureters: Hypodensity less than 1 cm in the right kidney is too small to accurately characterize. Mild hydronephrosis and hydroureter is seen on the right. No evidence of obstructing stone. Stomach and bowel: Postsurgical changes of sigmoid colon. Scattered diverticuli affect the descending colon. Appendix: No evidence of appendicitis. Intraperitoneal space: No evidence of free air in the abdomen. Vasculature: Mild atherosclerotic calcifications affect the aorta and its branches. Lymph nodes: Mildly enlarged aidee hepatis lymph nodes are seen the largest measuring 1.4 cm. Urinary bladder: Unremarkable as visualized. Reproductive: Unremarkable as visualized. Bones/joints: Unremarkable. No acute fracture. Soft tissues: Unremarkable. IMPRESSION: 1. Cholelithiasis without evidence of cholecystitis. 2. Mild hydronephrosis and hydroureter on the right. No evidence of obstructing stone. This finding may represent a recently passed stone. 3. Mildly enlarged aidee hepatis lymph nodes are seen the largest measuring 1.4 cm, likely reactive. COMMENTS: Consistent with the [employer]'s Incidental Findings Committee white paper (J Am Tone Radiol 2018): Any incidental renal lesion less than 1 cm or classified as too small to characterize, or any incidental cystic renal lesion characterized as simple-appearing, is likely benign. No follow-up imaging is recommended for these lesions per consensus recommendations based on imaging criteria.
--- NOTE | 2025-05-14 09:51 | CT_ITS ---
PROCEDURE INFORMATION: Exam: CTA Chest With Contrast Exam date and time: 05/14/2025 10:36 AM Age: 60 years old Clinical indication: Other: Hypoxia; Additional info: Right flank pain, hypoxia TECHNIQUE: Imaging protocol: Computed tomographic angiography of the chest with contrast. Exam focused on the arteries. 3D rendering (Not supervised by radiologist): MIP and/or 3D reconstructed images were created by the technologist. Radiation optimization: All CT scans at this facility use at least one of these dose optimization techniques: automated exposure control; mA and/or kV adjustment per patient size (includes targeted exams where dose is matched to clinical indication); or iterative reconstruction. Contrast material: ISOVUE; Contrast volume: 70 ml; Contrast route: INTRAVENOUS (IV); COMPARISON: CT ANGIO CHEST PE PROTOCOL 05/14/2025 10:36 AM FINDINGS: Pulmonary arteries: The main pulmonary artery at the level of the right pulmonary artery measures 2 cm. No evidence of acute pulmonary embolism upto the subsegmental level. Aorta: The ascending aorta at the level of the right pulmonary artery measures 3 cm. Mild atherosclerotic calcifications affect the aorta and its branches. Lungs: Patchy opacity in the right upper lobe likely representing atelectasis or infection. Mild patchy opacities in the left upper lobe may represent atelectasis or infection. Pleural spaces: Unremarkable. No pneumothorax. No pleural effusion. Heart: Unremarkable. No cardiomegaly. No pericardial effusion. Lymph nodes: Unremarkable. No enlarged lymph nodes. Bones/joints: Unremarkable. No acute fracture. Soft tissues: Unremarkable. IMPRESSION: Patchy opacity in the right upper lobe likely representing atelectasis or infection. Mild patchy opacities in the left upper lobe may represent atelectasis or infection. Follow-up till resolution is recommended.
--- NOTE | 2025-05-14 09:52 | HMH.EDGENADL ---
Discharge Plan Disposition Patient Disposition: Home, Self-Care Prescriptions Prescriptions: New naproxen 500 mg tablet 500 mg PO BID PRN (Reason: pain) 7 Days Qty: 14 0RF cyclobenzaprine 5 mg tablet 5 mg PO TID PRN (Reason: muscle spasm) 5 Days Qty: 15 0RF No Action allopurinol 300 MG tablet 300 mg PO DAILY prednisone 20 MG tablet 20 mg PO BID Qty: 10 0RF minocycline 100 MG tablet 100 mg PO BID Qty: 14 0RF Referrals Follow up/Referrals: Terry Taylor MD [Primary Care Provider, Medical] - See instructions Roselia Rajput MD [Physician, Pulmonology] - See instructions Activity Restrictions/Add. Instructions Additional Instructions/Restrictions: No definitive evidence for the cause of your right sided pleuritic chest pain/flank/abdominal pain. I have prescribed a muscle relaxer and an anti-inflammatory medication as it is possible that this is musculoskeletal in nature. However there was an incidental lesion on the upper lobe of your right lung that you claimed to have known about over the last year given the fact we do not have old imaging to compare to based on your description this likely has gotten bigger. It is possible this is a malignancy. I have put a consult order in for case management who should call you to discuss the possibilities of getting this evaluated further. Clinical Impressions Clinical Impression: Right sided abdominal pain, Hypoxemia, Lesion of right lung Print Language Print Language: Icelandic Discharge ED Provider: Sudhir Fitch General Adult HPI General Chief complaint: PAIN Stated complaint: Pain in Right side Time Seen by Provider: 05/14/25 09:40 Mode of Arrival: Ambulatory Source of Information: Patient Description of Symptoms (Recalled from ER Triage Doc. by RN): pt is here for right sided pain since friday, no known injury or trauma, pt has hx of diverticulities but denies any n/v/d, pt denies hx of kiney stone yesterday History of Present Illness HPI narrative: Patient is a 60-year-old with a history of diverticulitis with colectomy status post ostomy reversal resents today with right sided abdominal and flank pain. Initially states that the pain has been intermittent and coming and going and feels like a bruise he states. No hematuria no history of kidney stones. No nausea vomiting no changes in bowel movements no urinary symptoms otherwise. Patient does also state that he has difficulty taking a deep breath and that he has pain with inspiration. Does not claim to be short of breath no fevers or chills. No history of PTE or DVT. No lower extremity swelling. Related Data Home Medications ?Medication ?Instructions ?Recorded ?Confirmed allopurinol 300 mg tablet 300 mg PO DAILY GOUT 10/22/21 10/22/21 Previous Rx's ?Medication ?Instructions ?Recorded minocycline 100 mg tablet 100 mg PO BID #14 tabs 10/22/21 prednisone 20 mg tablet 20 mg PO BID #10 tabs 10/22/21 cyclobenzaprine 5 mg tablet 5 mg PO TID PRN muscle spasm 5 05/14/25 days #15 tabs naproxen 500 mg tablet 500 mg PO BID PRN pain 7 days #14 05/14/25 tabs Allergies Allergy/AdvReac Type Severity Reaction Status Date / Time No Known Allergies Allergy Verified 10/22/21 21:00 [facility] Disclaimer: The information contained in this section may have been updated after the patient was seen, as this information can be updated by other users. Social History Smoking Status: Current every day smoker alcohol intake: never current occupational status: other Travel in the last 8 weeks?: None Other Medical History Have you received the Flu Vaccine for this season: No Have you received the Pneumonia Vaccine: No ROS Obtained: Yes All systems reviewed & no additional complaints except as documented Physical Exam General General appearance: alert (Oxygen saturation to 88% on room air normalized with 2 L nasal cannula) Chest Chest inspection: Present normal inspection and symmetric chest wall rise; Absent tenderness Respiratory Respiratory exam: Present normal lung sounds bilaterally Cardiovascular Cardiovascular exam: Present regular rate Abdominal Exam Abdominal exam: Present soft; Absent distention or tenderness Neurological Exam Neurological exam: Present alert and oriented X3 Medical Decision Making Medical Records Screening: Per USPSTF and CDC recommendations, given the prevalence of disease in our region, it is our hospital?s policy to screen for HIV and viral Hepatitis for all patients aged 18 and over and those with ongoing risk factors. Umesh Inquiry Pt receiving controlled substance: No Vital Signs: 05/14/25 09:25 05/14/25 09:32 05/14/25 09:45 Temperature 97.8 F Temperature Source Oral Pulse Rate 77 72 Pulse Rate [Left Radial] 64 Respiratory Rate 20 20 Blood Pressure 166/96 H Blood Pressure [Right Arm] 166/96 H Blood Pressure Mean [Right Arm] 119 02 Sat by Pulse Oximetry 94 L 96 Oxygen Delivery Method Room Air Room Air Oxygen Flow Rate (LPM) 05/14/25 09:52 05/14/25 09:57 05/14/25 10:01 Temperature Temperature Source Pulse Rate 60 Pulse Rate [Left Radial] Respiratory Rate 18 Blood Pressure 136/82 Blood Pressure [Right Arm] Blood Pressure Mean [Right Arm] 02 Sat by Pulse Oximetry 88 L 99 97 Oxygen Delivery Method Room Air Nasal Cannula Room Air Oxygen Flow Rate (LPM) 2 05/14/25 10:57 05/14/25 11:00 Temperature Temperature Source Pulse Rate 54 L 65 Pulse Rate [Left Radial] Respiratory Rate 21 18 Blood Pressure 152/84 H 152/85 H Blood Pressure [Right Arm] Blood Pressure Mean [Right Arm] 02 Sat by Pulse Oximetry 97 98 Oxygen Delivery Method Nasal Cannula Nasal Cannula Oxygen Flow Rate (LPM) 2 2 Lab Data Lab results reviewed: Yes I reviewed the patient's lab results. Lab Results 05/14/25 09:30: Urine Color Yellow, Urine Appearance Clear, Urine pH 5.5, Ur Specific [place] 1.015, Urine Protein Negative, Urine Glucose (UA) Negative, Urine Ketones Negative, Urine Blood Negative, Urine Nitrate Negative, Urine Bilirubin Negative, Urine Urobilinogen 0.2, Ur Leukocyte Esterase Negative, Urine RBC None, Urine WBC None, Ur Squamous Epith Cells None, Urine Bacteria Trace 05/14/25 09:40: WBC 7.2, RBC 4.87, Hgb 16.1, Hct 46.7, MCV 95.9 H, MCH 33.1 H, MCHC 34.5, RDW 12.5, Plt Count 146, MPV 11.8 H, Neut % (Auto) 65.0, Lymph % (Auto) 18.3, [place] % (Auto) 8.6, Eos % (Auto) 7.1, Baso % (Auto) 0.4, Neut # (Auto) 4.7, Lymph # (Auto) 1.3, [place] # (Auto) 0.6, Eos # (Auto) 0.5 H, Baso # (Auto) 0.0, Sodium 137, Potassium 3.9, Chloride 99, Carbon Dioxide 30, Anion Gap 11.9, BUN 15, Creatinine 1.20, Estimated Creat Clear 72, Estimated GFR 61, Est GFR ( Amer) 74, Glucose 219 H, Lactate 1.3, Calcium 9.0, Total Bilirubin 0.8, AST 31, ALT 33, Alkaline Phosphatase 101, Total Protein 7.5, Albumin 4.1, Globulin 3.4 H, Albumin/Globulin Ratio 1.2, Lipase 211 05/14/25 09:51: Troponin I < 0.01 05/14/25 09:40 05/14/25 09:40 Orders (Tests/Meds): ED MEDICATIONS Generic Name Dose Route Start Last Admin Trade Name Freq PRN Reason Stop Dose Admin Sodium Chloride 10 ml 05/14/25 10:42 05/14/25 10:43 Sodium Chloride 0.9% 10ml Syr (Rad Only) IV 06/13/25 10:41 10 ml NEEDED PRN Administration Maintain IV Site Discontinued Medications Generic Name Dose Route Start Last Admin Trade Name Freq PRN Reason Stop Dose Admin Lactated Ringer's 1,000 mls @ 999 mls/hr 05/14/25 10:00 05/14/25 11:40 Lactated Ringer's 1000 Ml Bag IV 05/14/25 11:00 Infused .Q1H1M CLAUDIO Infusion Iopamidol 70 ml 05/14/25 10:42 05/14/25 10:43 Iopamidol-370 (76%);100ml Bottle IV 05/14/25 10:43 70 ml ONCE ONE Administration Morphine Sulfate 4 mg 05/14/25 09:47 05/14/25 10:00 Morphine 4mg/Ml Syringe IV 05/14/25 09:48 4 mg ONCE ONE Administration Ondansetron HCl 4 mg 05/14/25 09:47 05/14/25 09:59 Ondansetron 4mg/2ml Vial IV 05/14/25 09:48 4 mg ONCE ONE Administration Sodium Chloride 50 ml 05/14/25 10:42 05/14/25 10:43 0.9 % Sodium Chloride 50 Ml Vial IV 05/14/25 10:43 50 ml ONCE ONE Administration ORDERS Category Date Time Status CT abdomen pelvis w con Stat Cat Scan 05/14/25 09:[address] angio chest PE protocol Stat Cat Scan 05/14/25 09:51 Completed Consult to Case Management [CONS] Routine Cons 05/14/25 12:15 Active CBC w/Auto Diff [Complete Blood Count Auto Diff] Stat Lab 05/14/25 09:40 Completed CMP [Comprehensive Metabolic Panel] Stat Lab 05/14/25 09:40 Completed Lactic Acid Stat Lab 05/14/25 09:40 Completed Lipase Stat Lab 05/14/25 09:40 Completed Trop I [Troponin I] Stat Lab 05/14/25 09:51 Completed Troponin I Q3H Lab 05/14/25 13:00 Ordered Troponin I Q3H Lab 05/14/25 16:00 Ordered UA [Urinalysis and Microscopic] Stat Lab 05/14/25 09:30 Completed Medical Decision Narrative: 60-year-old with right inferolateral chest wall/flank/abdominal pain. No significant tenderness to palpation this is unlikely to be an inflammatory process primarily. Differential includes peripheral pneumonia or pulmonary infarction from a pulmonary embolism, malignancy, recurrent diverticulitis, kidney stone, pyelonephritis etc. Will get a CT scan of the patient's chest abdomen pelvis and lab evaluation in addition to administering medication for his symptoms. I will reassess after this initial workup is complete. Reassessment 1218 patient remains very stable. CT scans of the patient's chest abdomen pelvis were performed I personally interpreted. CT scan of the abdomen demonstrates cholelithiasis without any definitive evidence of cholecystitis. No definitive cause of patient's symptoms on CT scan. Radiology read that there is mildly elevated or dilated ureter with evidence of possibly passed a stone however there is no hematuria this is unlikely. Also some lymph nodes which are likely reactive. Regarding the patient CT scan of the chest there is a lesion in the right upper lobe which radiology read as atelectasis versus infectious. Patient has no infectious symptoms. This is also remote with regards to where his symptoms are located. Patient has known about a lesion on the right upper lobe for the last year this was being followed by [facility] was told that it was very small but he lost his insurance has not been able to follow-up on it. He is still uninsured at the moment. I am concerned at this point given the size of this that it could be a malignancy and advised that he closely follow-up with our ladies suit operator. I put a case management consult and to see if they can help him from an insurance or payment standpoint to make sure that this gets followed up on. Regarding the pain that brought him to the emergency department it could be musculoskeletal in nature as there is no definitive cause on her CT imaging or labs to explain his symptoms. He has no right upper quadrant tenderness this is not consistent with Paola cystitis. Anti-inflammatory medications and muscle lectures have been prescribed. Critical Care Critical Care Time Critical Care Time: No
[2025-05-14 09:53] LABS: Hematocrit 46.7 % (42.0-52.0); Hemoglobin 16.1 g/dL (14.1-18.0); Immature Granulocytes % 0.6 %; Mean Corpuscular HGB Conc 34.5 g/dL (31.8-35.4); Mean Corpuscular Hemoglobin 33.1 pg (27.0-31.2); Mean Corpuscular Volume 95.9 fl (80-94); Nucleated Red Blood Cells % 0 %; Platelet Count 146 K/mm3 (142-424); Red Blood Count 4.87 M/mm3 (4.60-6.20); Red Cell Distribution Width-SD 43.8 fL; White Blood Count 7.2 K/mm3 (4.8-10.8)
--- NOTE | 2025-05-14 09:53 | PC.NURSE ---
pt was sitting in bed and desatted to 88%, applied 2Lnc and pt sat came up to 98%
[2025-05-14 09:57] LABS: Albumin Level 4.1 g/dl (3.5-5.0); Chloride 99 mmol/L (98-107); Potassium 3.9 mmoL/L (3.5-5.1); Sodium 137 mmol/L (136-145)
[2025-05-14 09:59] LABS: Alanine Aminotransferase 33 U/L (12-78); Anion Gap 11.9 mEq/L (5-15); Aspartate Amino Transferase 31 U/L (17-59); Blood Urea Nitrogen 15 mg/dl (9-20); Carbon Dioxide 30 mmol/L (22.0-30.0); Creatinine Clearance Estimated 72 mL/min (50-200); Creatinine,Serum 1.20 mg/dl (0.66-1.25); Estimated Glomerular Filt Rate 61 ml/min (>60); GFR (African American) 74 ML/MIN (>60)
[2025-05-14] MEDS: LACTATED RINGERS 1000ML 1,000 ML 999 ML IV (09:59)
[2025-05-14] MEDS: ONDANSETRON 4MG/2ML VIAL 4 MG IV (09:59)
[2025-05-14 10:00] LABS: Albumin/Globulin Ratio 1.2 (1.1-1.8); Alkaline Phosphatase 101 U/L (38-126); Bilirubin,Total 0.8 mg/dl (0.2-1.3); Calcium 9.0 mg/dl (8.4-10.2); Globulin 3.4 g/dL (1.3-3.2); Glucose 219 mg/dl (74-100); Lipase 211 U/L (23-300); Total Protein,Serum 7.5 g/dl (6.3-8.2)
[2025-05-14] MEDS: MORPHINE 4MG/ML SYRINGE 4 MG IV (10:00)
[2025-05-14 10:17] LABS: Troponin I < 0.01 ng/ml (0.00-0.034)
[2025-05-14] MEDS: SODIUM CHLORIDE 0.9% 10ML SYR (RAD ONLY) 10 ML IV (10:43)
[2025-05-14] MEDS: IOPAMIDOL-370 (76%);100ML BOTTLE 70 ML IV (10:43)
[2025-05-14] MEDS: 0.9 % SODIUM CHLORIDE 50 ML VIAL IV (10:43)
--- NOTE | 2025-05-16 13:27 | CARE MANAGER ---
Contacted Kyra in pulmonology. She states they will start working on it.
== END 2025-05-14 12:33 | disposition home or self-care (01) ==
PROVIDERS: Emergency Provider Student in an Organized Health Care Education/Training Program; PCP Family Medicine
DX: R10.9 Unspecified abdominal pain (principal); R09.02 Hypoxemia; R91.1 Solitary pulmonary nodule
CPT/HCPCS: 71275; 74177; 80053; 81001; 83605; 83690; 84484; 85025; 93005; 96365; 96375; 99284; 99285; J2270; J2405; J7120; Q9967